=== PATIENT | female | born 1970 | race Caucasian/White ===

== ENCOUNTER 2021-02-09 18:18 | Emergency (ER) | payer MEDICAID ==
[~2021-02-09] VITALS: Ht 157.5 cm; Wt 133.8 kg
[2021-02-09 20:08] LABS: Basophils # (auto) 0 10 ^3/uL (0-0.2); Basophils % (auto) 0.5 % (0.0-2.0); Eosinophils # (auto) 0 10 ^3/uL (0-0.8); Eosinophils % (auto) 0.2 % (0.0-7.0); Hematocrit 27.8 % (36.0-46.0); Hemoglobin 8.2 g/dL (12.2-16.2); Lymphocytes # (auto) 1.1 10 ^3/uL (0.4-5.4); Lymphocytes % (auto) 16.7 % (10.0-50.0); Mean Corpuscular Hemoglobin 16.6 pg (28.0-32.0); Mean Corpuscular Hgb Conc. 29.5 g/dL (32.0-36.0); Mean Corpuscular Volume 56.4 fL (80.0-100.0); Monocytes # (auto) 0.3 10 ^3/uL (0-1.3); Monocytes % (auto) 4.3 % (0.0-12.0); Neutrophils # (auto) 5.1 10 ^3/uL (1.6-8.6); Neutrophils % (auto) 78.3 % (37.0-80.0); Nucleated Red Blood Cells % 0.2 %; Red Blood Cells 4.93 10^6/uL (4.0-5.20); White Blood Cell 6.5 10^3/uL (4.4-10.8)
[2021-02-09 20:09] LABS: Red Cell Distribution Width 21.8 % (11.8-14.3)
[2021-02-09 20:13] LABS: Albumin 3.1 g/dL (3.4-5.0); Potassium 3.8 mmol/L (3.5-5.1)
[2021-02-09 20:17] LABS: BUN/Creatinine Ratio 14.5; Bilirubin, Total 0.3 mg/dL (0.2-1.0); Total Protein 7.6 g/dL (6.4-8.2)
[2021-02-09 21:10] LABS: Magnesium 2.3 mg/dL (1.6-2.6)
[2021-02-09 23:33] LABS: INR 1.02 (0.9-1.15)
[2021-02-10 01:25] VITALS: BP 156/88
== END 2021-02-10 01:27 | disposition home or self-care (01) ==
LOC: ER 18:20
DX: U07.1 COVID-19 (principal); J12.82 Pneumonia due to coronavirus disease 2019
CPT/HCPCS: 36415; 71045; 80053; 83605; 83735; 83880; 84484; 85025; 85379; 85610; 87426

== ENCOUNTER 2024-10-04 11:40 | Inpatient (IN) | payer MEDICAID ==
[~2024-10-04] VITALS: Ht 152.4 cm; Wt 148.0 kg
--- NOTE | 2024-10-04 11:59 | ED.PDOC ---
HPI Comments 53 y/o F is BIBA from [facility] [place]. Chief complaint is chest pain nonradiating, with the associated shortness of breath, and productive green phlegm cough for 3x days . Patient states compliance with all her medications. Patient is a poor historian and a residence of a [facility]. She denies any palpitations, left-arm pain, nausea, vomiting, fever, chills, or other associated symptoms or modifying factors at this time. Vitals on scene: blood pressure of 141/102, pulse rate of 79, respiratory rate of 18, SpO2 of 96%RA, blood glucose of 116 Vitals upon ED arrival: blood pressure of 143/100, pulse rate of 78, respiratory rate of 18, Spo2 of 94%RA Past medical history: asthma, CHF, HTN, internal and external hemorrhoids, mental retardation Past surgical history: denies HPI: Poor Historian. REVIEW OF SYSTEMS: CONSTITUTIONAL: Denies acute: fever, diaphoresis, chills, generalized weakness. HEAD: Denies acute: headache, photophobia Eyes: Denies acute: Double vision, vision loss, eye pain, eye discharge. EARS: Denies acute: tinnitus, hearing loss, ear discharge, ear pain, THROAT: Denies acute: sore throat, swelling, difficulty swallowing , pain with swallowing, change in voice. NECK: Denies acute: neck pain, neck swelling, stiff neck. HEART: Denies acute : , palpitations, LUNGS: Denies acute: wheezing, hemoptysis ABDOMEN: Denies acute: abdominal pain, Nausea, Vomiting, diarrhea, melena , hematemesis, hematochezia SKIN: Denies acute: rash, redness, lesions, itchiness. EXTREMITIES: Denies acute: calf pain, numbness, tingling, weakness, denies pain in extremity. Denies acute: Low back pain. Neuro: Denies acute: focal neurological deficit, motor or sensory focal neurological deficit, tremors, seizure like activity, confusion, dizziness, change in mental status, loss of bowel or bladder function, cauda equina like symptoms. : Denies acute: dysuria, hematuria, flank pain, increase in urinary frequency. PSYCH: Denies acute: hallucination, suicidal ideation, homicidal ideation. FEMALE: Denies acute: abnormal vaginal bleeding, foul odor, unusual discharge. PHYSICAL EXAM: General: ---[id number]-----acute distress, awake and alert. Head: normocephalic, atraumatic. Neck: supple, trachea is midline, no swelling. Throat: Normal phonation. Eyes:, no erythema, no purulent discharge, no proptosis, no icterus. Heart: regular rate, regular rhythm, no significant murmur appreciated. Lungs: no apparent respiratory distress, Able to speak in full sentences. No wheezing, no rhonchi, no crackles. No stridors Clear to auscultation bilaterally. Abdomen: non tender to palpation, non distended, soft, no guarding, no rebound, + bowel sounds. Morbidly obese. Neuro: Awake, Alert, oriented to name, self, situation, follows commands GCS=15. Speech is normal. Skin: no petechia, no purpura, no cyanosis, non-pale, not jaundice. Lower extremities: --one/for bilateral - Pitting edema no deformity, no focal swelling, no calf TTP. Makes eye contact. moves all four extremities. Face: no apparent facial droop. ED COURSE: Time Seen by MD: 11:45 Primary Care Provider: NONE Reviewed Notes: Nurses Notes, Allergies Allergies: Coded Allergies: NO KNOWN ALLERGIES (Unverified , 01/03/12) Home Meds Reported Medications Ferrous Sulfate (Iron) 325 Mg Tab, 1 TAB PO DAILY 10/04/24 Potassium Chloride (Potassium Chloride ER) 20 Meq Tab, 1 TAB PO DAILY 10/04/24 Sennosides-Docusate Sodium (Senna Plus 50-8.6 mg) 1 Cap Cap, 1 CAP PO BID 10/04/24 Furosemide (Furosemide) 40 Mg Tab, 1 TAB PO DAILY 10/04/24 Lisinopril (Lisinopril) 2.5 Mg Tab, 1 TAB PO DAILY 10/04/24 Metoprolol Succinate (Metoprolol Succinate Er) 25 Mg Tab, 1 TAB PO DAILY 10/04/24 Information Source: Patient, Emergency Med Personnel Mode of Arrival: EMS Past Medical History PAST MEDICAL HISTORY: Asthma Surgical History: Denies all surgeries GAS STATION SERVICE ATTENDANT History: Denies all GAS STATION SERVICE ATTENDANT Hx Family History Family History: Reviewed,noncontributory to illness Social History Smoker: Non-Smoker Alcohol: Denies ETOH Use Drugs: Denies Drug Use Lives In: Home Was a procedure done? Was a procedure done?: No CP Differential Dx Differential Diagnosis: N/A Differential Diagnosis: Other (Ddx include but not limitied to gastritis, musculoskeletal pain, radiculopathy, atypical chest pain, dissection, aneurysm, ACS, unstable angina, hiatal hernia, GERD, anxiety, costochondritis, PE, pneumothroax, neoplasm, cardiac ischemia, drug abuse, anemia.) X-Ray, Labs, Meds, VS Vital Signs Date Time Temp Pulse Resp B/P (MAP) Pulse Ox O2 Delivery O2 Flow Rate FiO2 10/04/24 12:53 76 18 94 Room Air 10/04/24 12:53 98.3 76 18 123/72 (89) 94 98.3 10/04/24 12:41 80 10/04/24 12:30 15 96 Room Air* 0 21 10/04/24 11:45 78 10/04/24 11:40 98.9 73 18 143/100 (114) 94 98.9 Lab Test 10/04/24 13:08 10/04/24 12:56 10/04/24 12:30 10/04/24 12:08 Range/Units Troponin I High Sensitivity < 3 L < 3 L </=34 ng/L Sodium Level 139 136-145 mmol/L Potassium Level 4.4 3.5-5.1 mmol/L Chloride Level 102 98-107 mmol/L Carbon Dioxide Level 28 20-31 mmol/L Anion Gap 9 5-15 Blood Urea Nitrogen 13 9-23 mg/dL Creatinine 0.99 0.550-1.02 mg/dL Glomerular Filtration Rate Calc 68 >90 mL/min BUN/Creatinine Ratio 13.1 10.0-20.0 Serum Glucose 91 74-106 mg/dL Lactic Acid Level 1.6 0.4-2.0 mmol/L Calcium Level 10.1 8.7-10.4 mg/dL Magnesium Level 2.1 1.6-2.6 mg/dL Total Bilirubin 0.4 0.2-1.0 mg/dL Aspartate Amino Transferase (AST) 17 13-40 U/L Alanine Aminotransferase (ALT) 21 7-40 U/L Alkaline Phosphatase 71 46-116 U/L Total Protein 8.0 5.7-8.2 g/dL Albumin 4.6 3.2-4.8 g/dL Lipase Pending White Blood Count 10.6 4.4-10.8 10^3/uL Red Blood Count 5.83 H 4.0-5.20 10^6/uL Hemoglobin 16.3 H 12.2-16.2 g/dL Hematocrit 50.3 H 36.0-46.0 % Mean Corpuscular Volume 86.2 80.0-100.0 fL Mean Corpuscular Hemoglobin 27.9 L 28.0-32.0 pg Mean Corpuscular Hemoglobin Concent 32.4 32.0-36.0 g/dL Red Cell Distribution Width 15.4 H 11.8-14.3 % Platelet Count 273 140-450 10^3/uL Mean Platelet Volume 9.5 6.9-10.8 fL Neutrophils (%) (Auto) 76.2 37.0-80.0 % Lymphocytes (%) (Auto) 14.1 10.0-50.0 % Monocytes (%) (Auto) 5.0 0.0-12.0 % Eosinophils (%) (Auto) 3.8 0.0-7.0 % Basophils (%) (Auto) 0.9 0.0-2.0 % Neutrophils # (Auto) 8.1 1.6-8.6 10 ^3/uL Lymphocytes # (Auto) 1.5 0.4-5.4 10 ^3/uL Monocytes # (Auto) 0.5 0-1.3 10 ^3/uL Eosinophils # (Auto) 0.4 0-0.8 10 ^3/uL Basophils # (Auto) 0.1 0-0.2 10 ^3/uL Nucleated Red Blood Cells 0.4 % B-Type Natriuretic Peptide 7.80 0-100 pg/mL Current Medications Medications (Trade) Dose Ordered Sig/David Route Start Time Stop Time Status Last Admin Aspirin 325 mg ONCE ONCE PO 10/04/24 13:00 10/04/24 13:01 DC 10/04/24 12:[address] [address] Ph: [phone] DIAGNOSTIC IMAGING Diagnostic Imaging Report : [id number] Signed PATIENT: WILLIE SHER ACCT: [id number] UNIT: [id number] : 1970 LOC: ER ROOM / BED: / AGE / SEX: 53 / F ADM STATUS: REG ER SERVICE 1153 ORDERING PHYSICIAN: PAMELA BECKER DO PROCEDURE(s): CXRP - CHEST PORTABLE REASON: cp ORDER NUMBER(s): [id number], ACCESSION NUMBER(s): [id number] CHEST RADIOGRAPH Indication: cp Technique: Single frontal view of the chest was obtained COMPARISON: CHEST PORTABLE on DOS: 02/09/21 FINDINGS: Lines and Tubes: None Lungs: Increased interstitial prominence Pleura: No effusion. No pneumothorax. Cardiomediastinal contours: Cardiomegaly Bones: Unremarkable IMPRESSION: Pulmonary vascular congestion ATED BY: FREDRICK SANDOVAL MD DICTATED DATE/TIME: 10/04/24 1257 SIGNED BY: FREDRICK SANDOVAL MD SIGNED DATE/TIME: 10/04/24 1257 CC: Time of 1ST Reevaluation: 11:45 Reevaluation 1ST: Unchanged Patient Education/Counseling: Diagnosis, Treatment Family Education/Counseling: No Family Present Comments Patient presented with the above HPI.--chest pain----workup was initiated. patient was found with the above mentioned diagnosis. the following medications were ordered: please refer to order lists of meds and tests obtained by myself Dr. Becker. Patient ED course and VS have been stabilized. Patient has been reassessed in the ED and remained in a stable condition. Pertinent incidental findings were discussed with the patient and/or family. Patient/family voices understanding and is agreeable with plan. Patient has been observed in the ED adequate length of time to insure improvement/stability. Escalation of care considered: Consideration of escalation to observation or admission Patient was ADMITTED to the medicine team for further evaluation and treatment of their presentation. All the reports of any imaging studies that were ordered by myself were reviewed by myself. Departure 1 Departure Time of Disposition: 12:33 Impression: Primary Impression: Chest pain Disposition: ADMITTED INPATIENT Admit to: [facility] Condition: Guarded Discharged With: Self Critical Care Note Critical Care Time?: No Heart Score Heart Score: Heart Score Response (Comments) Value History Moderate Suspicious 1 EKG Normal 0 Age 45-64 1 Risk Factors >3 or Hx ASHD 2 Troponin Normal limit 0 Total 4 I personally scribed for PAMELA BECKER DO ([email or web address]) on 10/04/24 at 11:59. Electronically submitted by Ángel Chowdhury ([email or web address]). I personally scribed for PAMELA BECKER DO ([email or web address]) on 10/04/24 at 14:07. Electronically submitted by Ángel Chowdhury ([email or web address]). PAMELA BECKER DO Oct 04, 2024 11:59
[2024-10-04] MEDS ORDERED: ASPirin-EC 325mg tab PO ONE (12:00)
[2024-10-04 12:30] VITALS: RESP 15; O2SAT 96
[2024-10-04 12:38] LABS: Basophils # (auto) 0.1 10 ^3/uL (0-0.2); Basophils % (auto) 0.9 % (0.0-2.0); Eosinophils # (auto) 0.4 10 ^3/uL (0-0.8); Eosinophils % (auto) 3.8 % (0.0-7.0); Hematocrit 50.3 % (36.0-46.0); Hemoglobin 16.3 g/dL (12.2-16.2); Lymphocytes # (auto) 1.5 10 ^3/uL (0.4-5.4); Lymphocytes % (auto) 14.1 % (10.0-50.0); Mean Corpuscular Hemoglobin 27.9 pg (28.0-32.0); Mean Corpuscular Hgb Conc. 32.4 g/dL (32.0-36.0); Mean Corpuscular Volume 86.2 fL (80.0-100.0); Monocytes # (auto) 0.5 10 ^3/uL (0-1.3); Neutrophils # (auto) 8.1 10 ^3/uL (1.6-8.6); Neutrophils % (auto) 76.2 % (37.0-80.0); Nucleated Red Blood Cells % 0.4 %; Platelet Count (auto) 273 10^3/uL (140-450); Red Blood Cells 5.83 10^6/uL (4.0-5.20); Red Cell Distribution Width 15.4 % (11.8-14.3); White Blood Cell 10.6 10^3/uL (4.4-10.8)
[2024-10-04] MEDS: NITROGLYCERIN 0.4 MG SL TAB SL ONE (12:43)
[2024-10-04] MEDS: ASPirin 325 MG TAB PO ONE (12:49)
--- NOTE | 2024-10-04 13:00 | DVH ---
CHEST RADIOGRAPH Indication: cp Technique: Single frontal view of the chest was obtained COMPARISON: CHEST PORTABLE on DOS: 02/09/21 FINDINGS: Lines and Tubes: None Lungs: Increased interstitial prominence Pleura: No effusion. No pneumothorax. Cardiomediastinal contours: Cardiomegaly Bones: Unremarkable IMPRESSION: Pulmonary vascular congestion
[2024-10-04 13:54] LABS: Alanine Aminotransferase 21 U/L (7-40); Albumin 4.6 g/dL (3.2-4.8); Alkaline Phosphatase 71 U/L (46-116); Anion Gap 9 (5-15); Aspartate Aminotransferase 17 U/L (13-40); BUN/Creatinine Ratio 13.1 (10.0-20.0); Bilirubin, Total 0.4 mg/dL (0.2-1.0); Blood Urea Nitrogen 13 mg/dL (9-23); Calcium 10.1 mg/dL (8.7-10.4); Carbon Dioxide 28 mmol/L (20-31); Chloride 102 mmol/L (98-107); Glucose 91 mg/dL (74-106); Magnesium 2.1 mg/dL (1.6-2.6); Potassium 4.4 mmol/L (3.5-5.1); Sodium 139 mmol/L (136-145)
[2024-10-04 14:20] LABS: Lipase 37 U/L (12-53)
[2024-10-04] MEDS ORDERED: MORPHINE SULFATE 4 MG/ML SYR/VIAL IV PRN (15:15)
[2024-10-04] MEDS ORDERED: ONDANSETRON HCL 4 MG/2 ML VIAL IV PRN (15:15)
[2024-10-04] MEDS ORDERED: MORPHINE SULFATE INJ 2 MG/ml SYRG IV PRN (15:15)
[2024-10-04] MEDS ORDERED: NITROGLYCERIN 0.4 MG SL TAB SL PRN ×2 (15:15)
[2024-10-04] MEDS ORDERED: SENN1CAP4 PO (15:17)
[2024-10-04] MEDS ORDERED: POTA-180 PO (15:17)
[2024-10-04] MEDS ORDERED: FERR-7 PO (15:17)
[2024-10-04] MEDS ORDERED: LISI2.5T47 PO (15:17)
[2024-10-04] MEDS ORDERED: METO25TA93 PO (15:17)
[2024-10-04] MEDS ORDERED: FURO40TA4 PO (15:17)
--- NOTE | 2024-10-04 15:29 | DVHHP2 ---
History of Present Illness Reason for Visit: Chest pain History of Present Illness Edith Freire is a 53-year-old female with past medical history of hypertension, developmental delay, morbid obesity, asthma, hemorrhoids, and CHF who presents to ED with chest pain with shortness of breath and productive phlegm x 3 days. Patient reports that pain developed while sitting and when asked her how much pain she is having on a numerical scale or how it started patient is unable to provide information. Patient also reports that she uses 2 L nasal cannula at the board and care and does not recall the name of the board and care. Patient also endorses that she has been having phlegm but unable to describe the color and how much. Patient is a poor historian and unable to provide further information. She states "that she is scared." Cardiovascular: CHF, HTN Pulmonary: Asthma Past Medical History Developmental delay Hemorrhoids Past Surgical History: None Family History: Other (Unable to provide info of who has a history of hypertension and cervical cancer) Smoke: No ALCOHOL: none Drugs: None Lives: Other Domestic Violence: Neg Review of Systems Respiratory: Shortness of breath, Sputum Cardiovascular: Chest Pain Allergies: Coded Allergies: NO KNOWN ALLERGIES (Unverified , 01/03/12) Medications Current Medications Medications Dose Ordered Sig/David Route Start Time Stop Time Status Last Admin Dose Admin Ceftriaxone Sodium 50 ml @ 100 mls/hr DAILY@09 IV 10/04/24 15:15 UNV Azithromycin 250 ml @ 125 mls/hr DAILY IV 10/04/24 15:15 UNV Aspirin 81 mg DAILY PO 10/05/24 10:00 UNV Atorvastatin Calcium 40 mg HS PO 10/04/24 22:00 UNV Morphine Sulfate 2 mg Q30MP PRN IV 10/04/24 15:15 UNV Acetaminophen 650 mg Q6HP PRN PO 10/04/24 15:15 UNV Nitroglycerin 0.4 mg Q5MINP PRN SL 10/04/24 15:15 UNV Ondansetron HCl 4 mg Q4HP PRN IV 10/04/24 15:15 UNV Nitroglycerin 0.4 mg Q5MINP PRN SL 10/04/24 15:15 UNV Morphine Sulfate 2 mg Q30M PRN IV 10/04/24 15:15 UNV Exam Vital Signs Vital Signs Date Time Temp Pulse Resp B/P (MAP) Pulse Ox O2 Delivery O2 Flow Rate FiO2 10/04/24 14:41 77 10/04/24 12:53 18 94 Room Air 10/04/24 12:53 98.3 123/72 (89) 98.3 10/04/24 12:30 0 21 General Appearance: Alert, Oriented X3, Cooperative, No acute distress HEENT: Atraumatic, PERRLA, EOMI, Mucous membr. moist/pink Respiratory: Normal air movement Cardiovascular: Regular rate, Normal S1, Normal S2, No murmurs Abdominal: Soft Extremities: No clubbing, No cyanosis Neuro: Normal speech, Normal tone, Sensation intact Psych/Mental Status: Mental status NL, Other (History of developmental delay anxious at the time) Labs/Xrays Labs Test 10/04/24 15:06 10/04/24 12:56 10/04/24 12:30 Range/Units Sodium Level 139 136-145 mmol/L Potassium Level 4.4 3.5-5.1 mmol/L Chloride Level 102 98-107 mmol/L Carbon Dioxide Level 28 20-31 mmol/L Anion Gap 9 5-15 Blood Urea Nitrogen 13 9-23 mg/dL Creatinine 0.99 0.550-1.02 mg/dL Glomerular Filtration Rate Calc 68 >90 mL/min BUN/Creatinine Ratio 13.1 10.0-20.0 Serum Glucose 91 74-106 mg/dL Lactic Acid Level 1.6 0.4-2.0 mmol/L Calcium Level 10.1 8.7-10.4 mg/dL Magnesium Level 2.1 1.6-2.6 mg/dL Total Bilirubin 0.4 0.2-1.0 mg/dL Aspartate Amino Transferase (AST) 17 13-40 U/L Alanine Aminotransferase (ALT) 21 7-40 U/L Alkaline Phosphatase 71 46-116 U/L Total Protein 8.0 5.7-8.2 g/dL Albumin 4.6 3.2-4.8 g/dL Lipase 37 12-53 U/L White Blood Count 10.6 4.4-10.8 10^3/uL Red Blood Count 5.83 H 4.0-5.20 10^6/uL Hemoglobin 16.3 H 12.2-16.2 g/dL Hematocrit 50.3 H 36.0-46.0 % Mean Corpuscular Volume 86.2 80.0-100.0 fL Mean Corpuscular Hemoglobin 27.9 L 28.0-32.0 pg Mean Corpuscular Hemoglobin Concent 32.4 32.0-36.0 g/dL Red Cell Distribution Width 15.4 H 11.8-14.3 % Platelet Count 273 140-450 10^3/uL Mean Platelet Volume 9.5 6.9-10.8 fL Neutrophils (%) (Auto) 76.2 37.0-80.0 % Lymphocytes (%) (Auto) 14.1 10.0-50.0 % Monocytes (%) (Auto) 5.0 0.0-12.0 % Eosinophils (%) (Auto) 3.8 0.0-7.0 % Basophils (%) (Auto) 0.9 0.0-2.0 % Neutrophils # (Auto) 8.1 1.6-8.6 10 ^3/uL Lymphocytes # (Auto) 1.5 0.4-5.4 10 ^3/uL Monocytes # (Auto) 0.5 0-1.3 10 ^3/uL Eosinophils # (Auto) 0.4 0-0.8 10 ^3/uL Basophils # (Auto) 0.1 0-0.2 10 ^3/uL Nucleated Red Blood Cells 0.4 % B-Type Natriuretic Peptide 7.80 0-100 pg/mL CHEST RADIOGRAPH Indication: cp Technique: Single frontal view of the chest was obtained COMPARISON: CHEST PORTABLE on DOS: 02/09/21 FINDINGS: Lines and Tubes: None Lungs: Increased interstitial prominence Pleura: No effusion. No pneumothorax. Cardiomediastinal contours: Cardiomegaly Bones: Unremarkable IMPRESSION: Pulmonary vascular congestion Assessment/Plan Assessment/Plan Assessment Chest pain Acute on chronic CHF exacerbation Green productive phlegm probable pneumonia versus pneumonitis Morbid obesity Acute hypoxic respiratory failure History of hypertension History of developmental delay History of asthma History of hemorrhoids Plan Admit to tele Antiemetics Pain management UA Diuretics Aspirin Statins EKG Troponins Chest x-ray Lactic level Lipase Mag level BNP Supportive oxygen IV antibiotics-ceftriaxone + azithromycin Echo ordered UDS TSH Lipid panel A1c Mag level Diet Strict I&Os Daily weights Home medications reconciled DVT prophylaxis-Lovenox PUD prophylaxis not indicated no history of GERD or GI bleed Discussed plan of care with patient and nurse Counseled patient on lifestyle modifications, diet, and exercise Patient is a resident of a board and care Plan discussed with: Patient My Orders Orders - MORGAN MULLINS [employer] [facility] DIRECTOR Procedure Category Date Status Time Ceftriaxone 1gm/50ml PHA 10/04/24 Logged D5w (Rocephin) 15:15 Azithromycin 500mg/ PHA 10/04/24 Logged 250ml (Zithromax 50 15:15 Echo 2d Mode Cardiac US 10/04/24 Logged DOP 15:07 Drug Screen LAB 10/04/24 Logged 15:07 Thyroid Stimulating LAB 10/04/24 Logged Hormone 15:07 Hemoglobin A1c LAB 10/04/24 Logged 15:07 Lipid Panel LAB 10/04/24 Logged 15:07 Admit ADMIT 10/04/24 Transmitted 15:07 Code Status CODE 10/04/24 Transmitted 15:07 Vital Signs JAYLEN 10/04/24 In Process 15:07 Roofer Metal JAYLEN 10/04/24 In Process 15:07 Cardiac DIET 10/04/24 Transmitted Diet-2gna,Lofat,Lochol Dinner Aspirin Tablet PHA 10/05/24 Logged 10:00 Atorvastatin (Lipitor) PHA 10/04/24 Logged 22:00 Morphine Sulfate PHA 10/04/24 Logged Injection 15:15 Acetaminophen Tablet PHA 10/04/24 Logged (Tylenol Tablet) 15:15 Complete Blood Count LAB 10/05/24 Verified 04:00 Basic Metabolic Panel LAB 10/05/24 Verified 04:00 Magnesium LAB 10/05/24 Verified 04:00 Nitroglycerin PHA 10/04/24 Logged Sublingual (Ntrostat 15:15 Ondansetron Hcl PHA 10/04/24 Logged (Zofran) 15:15 Electrocardigram EKG 10/05/24 Logged 04:00 Troponin-I Hs LAB 10/04/24 Logged 15:07 Cardiac JAYLEN 10/04/24 In Process Rehabilitation - Outpa Nitroglycerin PHA 10/04/24 Logged Sublingual (Ntrostat 15:15 Morphine Sulfate PHA 10/04/24 Logged Injection 15:15 Stat Ekg For Chest JAYLEN 10/04/24 In Process Pain 15:07 Notify Of Changes JAYLEN 10/04/24 In Process From Base 15:07 Senior Executive Compensation Analyst For JAYLEN 10/04/24 In Process 24 Hours 15:07 Emergency Dysrhythmia JAYLEN 10/04/24 In Process Protocol 15:07 Rhythm Strips Once [facility] 10/04/24 In Process Every Shift 15:07 Oxygen By Nasal RT 10/04/24 Transmitted Cannula 15:07 Furosemide Tablet PHA 10/05/24 Transmitted (Lasix Tablet) 10:00 (Nf) Ferrous Sulfate PHA 10/05/24 Transmitted (Iron) 10:00 (Nf) Lisinopril PHA 10/05/24 Transmitted 10:00 (Nf) Metoprolol PHA 10/05/24 Transmitted Succinate (Metoprolol 10:00 (Nf) Potassium PHA 10/05/24 Transmitted Chloride (Potassium 10:00 (NF) PHA 10/04/24 Transmitted Sennosides-Docusate 22:00 Enoxaparin Sodium PHA 10/05/24 Verified (Lovenox) 10:00 Date of Service: Oct 04, 2024 Billing Provider: MORGAN MULLINS Common Visit Codes: [id number] INP/OBS CARE (HIGH) MORGAN MULLINS Oct 04, 2024 15:29
[2024-10-04 15:52] LABS: Triglycerides 84 mg/dL (< 150)
[2024-10-04 15:53] LABS: LDL Cholesterol 95 mg/dL (< 100)
[2024-10-04 15:54] LABS: Cholesterol 157 mg/dL (< 200); HDL Cholesterol 50 mg/dL (40-59)
[2024-10-04 17:05] LABS: Urine Bacteria None Seen /hpf (None Seen)
[2024-10-04 17:25] LABS: Urine Blood Negative /uL (Negative); Urine Clarity Clear (Clear); Urine Color Light-Yellow (Yellow); Urine Protein, UAD Negative (Negative); Urine Specific Gravity 1.011 (1.001-1.035); Urine Squamous Epithelial Cell None Seen /hpf (<5); Urine Urobilinogen Normal (Negative); Urine WBC < 1 /HPF (0-5)
[2024-10-04 17:28] LABS: Amphetamine Screen, Urine Neg (NEGATIVE); Barbiturate Scree,Urine Neg (NEGATIVE); Benzodiazephine Screen, Urine Neg (NEGATIVE); Cannabinoid Screen, Urine Neg (NEGATIVE); Cocaine Screen, Urine Neg (NEGATIVE); Opiate Scree,Urine Neg (NEGATIVE); Phencyclidine Screen, Urine Neg (NEGATIVE)
[2024-10-04] MEDS: cefTRIAXone 1GM/50ML D5W 50 ML IV SCH (17:40)
[2024-10-04] MEDS: FUROSEMIDE 40 MG/4 ML VIAL IV ONE (17:41)
[2024-10-04] MEDS: FUROSEMIDE 40 MG/4 ML VIAL IV SCH (18:00)
[2024-10-04] MEDS: AZITHROMYCIN 500MG/ 250ML 250 ML IV SCH (18:08)
--- NOTE | 2024-10-04 18:16 | ECG ---
[facility] Test Date: 2024-10-04 Test Time: 11:45:22 Pat Name: WILLIE SHER Department: ED Room: 0223T Gender: F Strategic Account Director: dung : 1970 Requested By: PAMELA BECKER Order Number: [id number] Reading MD: Wallace Medrano Measurements Intervals [place] Rate: 78 P: 40 WI: 160 QRS: 45 QRSD: 99 T: 30 QT: 391 QTc: 446 Interpretive Statements Sinus rhythm Low voltage, precordial leads Electronically Signed On 10-06-2024 20:28:34 PDT by Wallace Medrano Please click the below link to view image of tracing.
[2024-10-04 18:26] VITALS: BP 107/63; PULSE 79; RESP 22; TEMP 97.7; O2SAT 93
[2024-10-04 18:50] VITALS: BP 107/69; PULSE 76; RESP 20; TEMP 97.7; O2SAT 93
[2024-10-04 20:00] VITALS: PULSE 72
[2024-10-04] MEDS: ACETAMINOPHEN 325 MG TAB PO PRN (20:32)
[2024-10-04 21:00] VITALS: BP 110/65; PULSE 80; RESP 20; TEMP 97.9; O2SAT 94
[2024-10-04] MEDS: ATORVASTATIN 20 MG TAB PO SCH (22:33)
[2024-10-04] MEDS: SENNOSIDES DOCUSATE SODIUM PO SCH (22:33)
[2024-10-05] VITALS (7 sets, daily range): BP systolic 103–123; BP diastolic 51–69; PULSE 72–91; RESP 15–20; TEMP 97.5–98.7; O2SAT 90–99
[2024-10-05 07:12] LABS: Basophils # (auto) 0.1 10 ^3/uL (0-0.2); Eosinophils # (auto) 0.4 10 ^3/uL (0-0.8); Eosinophils % (auto) 4.4 % (0.0-7.0); Hemoglobin 14.3 g/dL (12.2-16.2); Lymphocytes # (auto) 1.3 10 ^3/uL (0.4-5.4); Lymphocytes % (auto) 14.3 % (10.0-50.0); Mean Corpuscular Hemoglobin 28.2 pg (28.0-32.0); Mean Corpuscular Hgb Conc. 32.4 g/dL (32.0-36.0); Mean Corpuscular Volume 86.9 fL (80.0-100.0); Monocytes # (auto) 0.4 10 ^3/uL (0-1.3); Monocytes % (auto) 4.5 % (0.0-12.0); Neutrophils % (auto) 75.8 % (37.0-80.0); Nucleated Red Blood Cells % 0.2 %; Platelet Count (auto) 258 10^3/uL (140-450); Red Blood Cells 5.06 10^6/uL (4.0-5.20); Red Cell Distribution Width 15.3 % (11.8-14.3); White Blood Cell 9.3 10^3/uL (4.4-10.8)
[2024-10-05 07:31] LABS: Chloride 102 mmol/L (98-107); Potassium 4.5 mmol/L (3.5-5.1); Sodium 139 mmol/L (136-145)
[2024-10-05 07:32] LABS: Calcium 9.8 mg/dL (8.7-10.4)
[2024-10-05 07:37] LABS: BUN/Creatinine Ratio 11.7 (10.0-20.0); Blood Urea Nitrogen 12 mg/dL (9-23); Magnesium 2.3 mg/dL (1.6-2.6)
[2024-10-05 07:39] LABS: Glucose 108 mg/dL (74-106)
[2024-10-05 07:49] LABS: Anion Gap 10 (5-15); Carbon Dioxide 27 mmol/L (20-31)
[2024-10-05] MEDS: ASPirin 81 mg TAB PO SCH (09:47)
[2024-10-05] MEDS: FERROUS SULFATE 325mg EC TAB PO SCH (09:47)
[2024-10-05] MEDS: POTASSIUM CHL 20 Meq TABLET PO SCH (09:47)
[2024-10-05] MEDS: ENOXAPARIN SOD 40 MG/0.4 ML SYRINGE SC SCH (09:47)
[2024-10-05] MEDS: METOPROLOL SUCCINATE XL 50 MG TAB PO SCH (09:48)
[2024-10-05] MEDS: LISINOPRIL 5 MG TAB PO SCH (09:48)
[2024-10-05] MEDS ORDERED: FUROSEMIDE 40 MG TAB PO SCH (10:00)
[2024-10-05] MEDS ORDERED: PATIENTS OWN MEDICATION (Potassium Chloride (Potassium Chloride ER) 1 TAB) PO SCH (10:00)
[2024-10-05] MEDS ORDERED: FERROUS SULFATE PO SCH (10:00)
--- NOTE | 2024-10-05 12:39 | DVHPN2 ---
Subjective The patient is seen and examined at bedside. No complaint today. Still have shortness for breath. Reviewed: Care Plan, H&P, Labs, Medications, Previous Orders, Radiology Changes from previous H/P or p: No Changes Cardiovascular: Chest Pain Respiratory: Shortness of breath, Sputum Objective Vitals Vital Signs Date Time Temp Pulse Resp B/P (MAP) Pulse Ox O2 Delivery O2 Flow Rate FiO2 10/05/24 09:48 87 103/51 10/05/24 09:00 98.2 20 93 98.2 10/05/24 08:00 Nasal Cannula* 2 28 Intake/Output Intake and Output 10/05/24 07:00 Intake Total 700 ml Output Total 2300 ml Balance -1600 ml Intake Oral 400 ml IV Total 300 ml Output Urine Total 2300 ml General Appearance: Alert, Cooperative, No acute distress HEENT: Atraumatic, PERRLA, EOMI, Mucous membr. moist/pink Lungs: Clear to auscultation, Normal air movement Cardiovascular: Regular rate, Normal S1, Normal S2, No murmurs, Gallops, Rubs Abdomen: Normal bowel sounds, Soft, No tenderness Neuro: Cranial nerves 3-12 NL Psych/Mental Status: Mental status NL Medications Current Medications Medications Dose Ordered Sig/David Route Start Time Stop Time Status Last Admin Dose Admin Ceftriaxone Sodium 50 ml @ 100 mls/hr DAILY@09 IV 10/04/24 15:15 10/05/24 09:45 100 MLS/HR Azithromycin 250 ml @ 125 mls/hr DAILY IV 10/04/24 15:15 10/05/24 11:12 125 MLS/HR Aspirin 81 mg DAILY PO 10/05/24 10:00 10/05/24 09:47 81 MG Atorvastatin Calcium 40 mg HS PO 10/04/24 22:00 10/04/24 22:33 40 MG Acetaminophen 650 mg Q6HP PRN PO 10/04/24 15:15 10/05/24 03:27 650 MG Ondansetron HCl 4 mg Q4HP PRN IV 10/04/24 15:15 Nitroglycerin 0.4 mg Q5MINP PRN SL 10/04/24 15:15 Morphine Sulfate 2 mg Q30M PRN IV 10/04/24 15:15 Lisinopril 2.5 mg DAILY PO 10/05/24 10:00 10/05/24 09:48 2.5 MG Metoprolol Succinate 25 mg DAILY PO 10/05/24 10:00 10/05/24 09:48 25 MG Patient Own Medication 1 cap BID PO 10/04/24 22:00 Enoxaparin Sodium 40 mg DAILY SC 10/05/24 10:00 10/05/24 09:47 40 MG Furosemide 40 mg BIDD IV 10/04/24 18:00 10/05/24 05:20 40 MG Ferrous Sulfate 325 mg DAILY PO 10/05/24 10:00 10/05/24 09:47 325 MG Potassium Chloride 20 meq DAILY PO 10/05/24 10:00 10/05/24 09:47 20 MEQ Laboratory Results Laboratory Tests 10/05/24 06:27 Chemistry Test 10/04/24 12:56 10/05/24 06:27 Albumin 4.6 g/dL (3.2-4.8) Calcium Level 10.1 mg/dL (8.7-10.4) 9.8 mg/dL (8.7-10.4) Magnesium Level 2.1 mg/dL (1.6-2.6) 2.3 mg/dL (1.6-2.6) Total Protein 8.0 g/dL (5.7-8.2) Lipid panel Test 10/04/24 12:56 10/04/24 15:06 Lipase 37 U/L (12-53) Cholesterol Level 157 mg/dL (< 200) HDL Cholesterol 50 mg/dL (40-59) Triglycerides Level 84 mg/dL (< 150) LFT Test 10/04/24 12:56 Alanine Aminotransferase (ALT) 21 U/L (7-40) Alkaline Phosphatase 71 U/L (46-116) Aspartate Amino Transferase (AST) 17 U/L (13-40) Total Bilirubin 0.4 mg/dL (0.2-1.0) HgA1c, TSH Test 10/04/24 15:06 Thyroid Stimulating Hormone (TSH) 4.04 uIU/mL (0.55-4.78) Urinalysis Test 10/04/24 00:00 Urine Color Light-yellow (Yellow) Urine Clarity Clear (Clear) Urine pH 6.0 (5.0-9.0) Urine Specific [place] 1.011 (1.001-1.035) Urine Protein Negative (Negative) Urine Ketones Negative (Negative) Urine Blood Negative /uL (Negative) Urine Nitrite Negative (Negative) Urine Bilirubin Negative (Negative) Urine Urobilinogen Normal mg/dL (Negative) Urine Leukocyte Esterase Negative /uL (Negative) Urine RBC 1 /hpf (0 - 4) Urine Microscopic WBC < 1 /HPF (0-5) Urine Squamous Epithelial Cells None seen /hpf (<5) Urine Bacteria None seen /hpf (None Seen) Urine Glucose Normal mg/dL (Normal) Labs and/or images reviewed: Labs reviewed by me Assessment/Plan Assessment/Plan Chest pain Acute on chronic CHF exacerbation Green productive phlegm probable pneumonia versus pneumonitis Morbid obesity Acute hypoxic respiratory failure History of hypertension History of developmental delay History of asthma History of hemorrhoids Plan Continuing current management. Continuing with Lasix Continuing with nebulizer. Continuing with pain medication Continuing with IV antibiotic Rocephin and Zithromax. Waiting for strip roller to see the patient. This medical document was created using an electronic medical record system with [employer] direct computerized dictation system. Although this document has been carefully reviewed, there may still be some phonetic and typographical errors. These areas are purely typographical due to imperfections of the software programs, and do not reflect any compromise in the patient's medical care. Plan discussed with: Patient Date of Service: Oct 05, 2024 Billing Provider: SHAHEEN MARTINEZ MD Common Visit Codes: [id number] INP/OBS CARE(HIGH) SHAHEEN MARTINEZ MD Oct 05, 2024 12:39
--- NOTE | 2024-10-05 18:54 | ECG ---
[facility] Test Date: 2024-10-04 Test Time: 12:41:42 Pat Name: WILLIE SHER Department: ER Room: 0223T A Gender: F Welt Sewer: RITESH : 1970 Requested By: PAMELA BECKER Order Number: [id number] Reading MD: Wallace Medrano Measurements Intervals [place] Rate: 80 P: 36 LA: 160 QRS: 44 QRSD: 97 T: 29 QT: 396 QTc: 457 Interpretive Statements Sinus rhythm Low voltage, precordial leads Electronically Signed On 10-06-2024 20:29:13 PDT by Wallace Medrano Please click the below link to view image of tracing.
--- NOTE | 2024-10-05 20:53 | DVHSR ---
APPROVED REPORT EXAM: LIMITED Two-dimensional and M-mode echocardiogram with Doppler and color Doppler. Blood Pressure: 118/62 mmHg INDICATION Chest Pain RISK FACTORS Obesity: Height: 5', Weight: 277 DIMENSIONS LVDd5.1 (3.8-5.7cm)LA (2D)4.5 (1.9-4.0cm)Aortic Root4.3 (2.0-3.7cm) LVDs3.4 (2.5-4.0cm)LA (MM) (1.9-4.0cm)Aortic Cusp Exc1.6 (1.5-2.0cm) EF (%) 60.0 (55-70%)Rt. Atrium4.3 (1.9-4.0cm)Asc. Aorta cm IVSd1.1 (0.7-1.1cm)RV (D) (1.8-2.4cm) PWd1.0 (0.7-1.1cm) Mitral Valve MitralMitral Stenosis E wave0.90m/sMV Mean GR.mmHg A wave0.70m/sMV Peak GR.mmHg E/A ratio1.32D MVAcm2 Aortic Valve Aortic ValveAortic Stenosis V11.10m/Gilberto Mean GR.5mmHg V21.50m/Gilberto Peak GR.10mmHg LVOT Diameter1.9 (1.8-2.4cm)Doppler AVA2.08cm2 Pulmonic Valve V20.90m/s Tricuspid Valve TR Velocity2.70m/s [id number] Other Information Quality : Technically LimitedRhythm : Technically limited study due to body habitus. 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
[2024-10-05] MEDS: LORazepam 2MG/ML-1ML VIAL IV PRN (21:37)
[2024-10-06] VITALS (7 sets, daily range): BP systolic 97–108; BP diastolic 53–64; PULSE 72–91; RESP 15–18; TEMP 97.5–98.7; O2SAT 90–91
[2024-10-06 08:08] LABS: Anion Gap 8 (5-15); Calcium 10.4 mg/dL (8.7-10.4); Carbon Dioxide 29 mmol/L (20-31); Chloride 103 mmol/L (98-107); Potassium 4.4 mmol/L (3.5-5.1); Sodium 140 mmol/L (136-145)
[2024-10-06 08:14] LABS: BUN/Creatinine Ratio 13.2 (10.0-20.0); Blood Urea Nitrogen 14 mg/dL (9-23); Glucose 104 mg/dL (74-106)
--- NOTE | 2024-10-06 09:12 | ECG ---
[facility] Test Date: 2024-10-04 Test Time: 14:41:53 Pat Name: WILLIE SHER Department: ER Room: 0223T A Gender: F Measurement Department Chief Clerk: RITESH : 1970 Requested By: PAMELA BECKER Order Number: [id number] Reading MD: Wallace Medrano Measurements Intervals [place] Rate: 77 P: 41 DC: 160 QRS: 51 QRSD: 104 T: 30 QT: 406 QTc: 460 Interpretive Statements Sinus rhythm Low voltage, precordial leads Electronically Signed On 10-06-2024 20:29:46 PDT by Wallace Medrano Please click the below link to view image of tracing.
--- NOTE | 2024-10-06 12:04 | DVHPN2 ---
Subjective The patient is seen and examined at bedside. Complain shortness for breath. Reviewed: Care Plan, H&P, Labs, Medications, Previous Orders, Radiology Changes from previous H/P or p: No Changes Cardiovascular: Chest Pain Respiratory: Shortness of breath, Sputum Objective Vitals Vital Signs Date Time Temp Pulse Resp B/P (MAP) Pulse Ox O2 Delivery O2 Flow Rate FiO2 10/06/24 09:38 90 129/99 10/06/24 09:00 98.1 18 90 98.1 10/06/24 08:00 Nasal Cannula* 2 28 Intake/Output Intake and Output 10/06/24 07:00 Intake Total 1708 ml Output Total 3650 ml Balance -1942 ml Intake Oral 1408 ml IV Total 300 ml Output Urine Total 3650 ml # Voids 1 General Appearance: Alert, Cooperative, No acute distress HEENT: Atraumatic, PERRLA, EOMI, Mucous membr. moist/pink Neck: Supple Lungs: Clear to auscultation, Normal air movement Cardiovascular: Regular rate, Normal S1, Normal S2, No murmurs, Gallops, Rubs Abdomen: Normal bowel sounds, Soft, No tenderness, No hepatospenomegaly Neuro: Cranial nerves 3-12 NL Psych/Mental Status: Mental status NL Medications Current Medications Medications Dose Ordered Sig/David Route Start Time Stop Time Status Last Admin Dose Admin Ceftriaxone Sodium 50 ml @ 100 mls/hr DAILY@09 IV 10/04/24 15:15 10/06/24 09:35 100 MLS/HR Azithromycin 250 ml @ 125 mls/hr DAILY IV 10/04/24 15:15 10/06/24 11:54 125 MLS/HR Aspirin 81 mg DAILY PO 10/05/24 10:00 10/06/24 09:40 81 MG Atorvastatin Calcium 40 mg HS PO 10/04/24 22:00 10/05/24 21:59 40 MG Acetaminophen 650 mg Q6HP PRN PO 10/04/24 15:15 10/06/24 06:12 650 MG Ondansetron HCl 4 mg Q4HP PRN IV 10/04/24 15:15 Nitroglycerin 0.4 mg Q5MINP PRN SL 10/04/24 15:15 Morphine Sulfate 2 mg Q30M PRN IV 10/04/24 15:15 Lisinopril 2.5 mg DAILY PO 10/05/24 10:00 10/06/24 09:36 2.5 MG Metoprolol Succinate 25 mg DAILY PO 10/05/24 10:00 10/06/24 09:38 25 MG Patient Own Medication 1 cap BID PO 10/04/24 22:00 Enoxaparin Sodium 40 mg DAILY SC 10/05/24 10:00 10/06/24 09:35 40 MG Furosemide 40 mg BIDD IV 10/04/24 18:00 10/05/24 18:13 40 MG Ferrous Sulfate 325 mg DAILY PO 10/05/24 10:00 10/06/24 09:39 325 MG Potassium Chloride 20 meq DAILY PO 10/05/24 10:00 10/06/24 09:39 20 MEQ Lorazepam 1 mg DAILY PRN IV 10/05/24 21:15 10/05/24 21:37 1 MG Laboratory Results Laboratory Tests 10/05/24 06:27 10/06/24 07:02 Chemistry Test 10/06/24 07:02 Calcium Level 10.4 mg/dL (8.7-10.4) Urinalysis Test 10/04/24 00:00 Urine Color Light-yellow (Yellow) Urine Clarity Clear (Clear) Urine pH 6.0 (5.0-9.0) Urine Specific [place] 1.011 (1.001-1.035) Urine Protein Negative (Negative) Urine Ketones Negative (Negative) Urine Blood Negative /uL (Negative) Urine Nitrite Negative (Negative) Urine Bilirubin Negative (Negative) Urine Urobilinogen Normal mg/dL (Negative) Urine Leukocyte Esterase Negative /uL (Negative) Urine RBC 1 /hpf (0 - 4) Urine Microscopic WBC < 1 /HPF (0-5) Urine Squamous Epithelial Cells None seen /hpf (<5) Urine Bacteria None seen /hpf (None Seen) Urine Glucose Normal mg/dL (Normal) Labs and/or images reviewed: Labs reviewed by me Assessment/Plan Assessment/Plan Chest pain Acute on chronic CHF exacerbation Green productive phlegm probable pneumonia versus pneumonitis Morbid obesity Acute hypoxic respiratory failure History of hypertension History of developmental delay History of asthma History of hemorrhoids Plan Continuing current management. Continuing with Lasix Continuing with nebulizer. Continuing with pain medication Continuing with IV antibiotic Rocephin and Zithromax. Waiting for line installer trolley to see the patient. This medical document was created using an electronic medical record system with M*M flurency direct computerized dictation system. Although this document has been carefully reviewed, there may still be some phonetic and typographical errors. These areas are purely typographical due to imperfections of the software programs, and do not reflect any compromise in the patient's medical care. Plan discussed with: Patient My Orders Orders - SHAHEEN MARTINEZ MD Procedure Category Date Status Time R Ankle 2 View Xray XY 10/06/24 Logged 11:22 Date of Service: Oct 05, 2024 Billing Provider: SHAHEEN MARTINEZ MD Common Visit Codes: [id number] INP/OBS CARE(HIGH) SHAHEEN MARTINZE MD Oct 06, 2024 12:04
--- NOTE | 2024-10-06 12:13 | CODING ---
Date of Service: Oct 06, 2024 Billing Provider: SHAHEEN MARTINEZ MD Common Visit Codes: [id number] INP/OBS CARE(HIGH) SHAHEEN MARTINEZ MD Oct 06, 2024 12:13
[2024-10-06] MEDS: HYDROcodone-ACET 5/325MG TAB PO PRN (13:27)
[2024-10-06] MEDS: LORazepam 2MG/ML-1ML VIAL IV PRN (13:27)
--- NOTE | 2024-10-06 14:51 | DVH ---
CLINICAL INDICATION: RULE OUT FRACTURE TECHNIQUE: 2 views of the right ankle Comparison: None FINDINGS/IMPRESSION: There is no evidence of acute fracture or dislocation. Scattered mild degenerative changes. Soft tissues are unremarkable.
[2024-10-07] VITALS (11 sets, daily range): BP systolic 95–143; BP diastolic 54–80; PULSE 65–94; RESP 16–18; TEMP 97.5–98.3; O2SAT 90–99
--- NOTE | 2024-10-07 11:20 | DVHPN2 ---
Subjective The patient is seen and examined at bedside. No complaint today. Still have shortness for breath. Reviewed: Care Plan, H&P, Labs, Medications, Previous Orders, Radiology Changes from previous H/P or p: No Changes Cardiovascular: Chest Pain Respiratory: Shortness of breath, Sputum Objective Vitals Vital Signs Date Time Temp Pulse Resp B/P (MAP) Pulse Ox O2 Delivery O2 Flow Rate FiO2 10/07/24 10:00 96/54 10/07/24 05:00 97.9 80 18 90 97.9 10/06/24 20:00 Nasal Cannula* 2 28 Intake/Output Intake and Output 10/07/24 07:00 Intake Total 1735 ml Output Total 1000 ml Balance 735 ml Intake Oral 1435 ml IV Total 300 ml Output Urine Total 1000 ml # Bowel Movements 3 General Appearance: Alert, Cooperative, No acute distress HEENT: Atraumatic, PERRLA, EOMI, Mucous membr. moist/pink Neck: Supple Lungs: Clear to auscultation, Normal air movement Cardiovascular: Regular rate, Normal S1, Normal S2, No murmurs, Gallops, Rubs Abdomen: Normal bowel sounds, Soft, No tenderness Neuro: Cranial nerves 3-12 NL Psych/Mental Status: Mental status NL Medications Current Medications Medications Dose Ordered Sig/David Route Start Time Stop Time Status Last Admin Dose Admin Ceftriaxone Sodium 50 ml @ 100 mls/hr DAILY@09 IV 10/04/24 15:15 10/07/24 09:57 100 MLS/HR Azithromycin 250 ml @ 125 mls/hr DAILY IV 10/04/24 15:15 10/06/24 11:54 125 MLS/HR Aspirin 81 mg DAILY PO 10/05/24 10:00 10/07/24 10:06 81 MG Atorvastatin Calcium 40 mg HS PO 10/04/24 22:00 10/06/24 22:05 40 MG Acetaminophen 650 mg Q6HP PRN PO 10/04/24 15:15 10/06/24 06:12 650 MG Ondansetron HCl 4 mg Q4HP PRN IV 10/04/24 15:15 Nitroglycerin 0.4 mg Q5MINP PRN SL 10/04/24 15:15 Morphine Sulfate 2 mg Q30M PRN IV 10/04/24 15:15 Lisinopril 2.5 mg DAILY PO 10/05/24 10:00 10/06/24 09:36 2.5 MG Metoprolol Succinate 25 mg DAILY PO 10/05/24 10:00 10/06/24 09:38 25 MG Patient Own Medication 1 cap BID PO 10/04/24 22:00 Enoxaparin Sodium 40 mg DAILY SC 10/05/24 10:00 10/07/24 10:04 40 MG Furosemide 40 mg BIDD IV 10/04/24 18:00 10/07/24 06:23 40 MG Ferrous Sulfate 325 mg DAILY PO 10/05/24 10:00 10/07/24 10:05 325 MG Potassium Chloride 20 meq DAILY PO 10/05/24 10:00 10/07/24 10:04 20 MEQ Acetaminophen/ Hydrocodone Bitart 1 tab Q4HPRN PRN PO 10/06/24 13:15 10/07/24 10:36 1 TAB Lorazepam 1 mg Q4HPRN PRN IV 10/06/24 13:15 10/06/24 13:27 1 MG Laboratory Results Laboratory Tests 10/05/24 06:27 10/06/24 07:02 Urinalysis Test 10/04/24 00:00 Urine Color Light-yellow (Yellow) Urine Clarity Clear (Clear) Urine pH 6.0 (5.0-9.0) Urine Specific [place] 1.011 (1.001-1.035) Urine Protein Negative (Negative) Urine Ketones Negative (Negative) Urine Blood Negative /uL (Negative) Urine Nitrite Negative (Negative) Urine Bilirubin Negative (Negative) Urine Urobilinogen Normal mg/dL (Negative) Urine Leukocyte Esterase Negative /uL (Negative) Urine RBC 1 /hpf (0 - 4) Urine Microscopic WBC < 1 /HPF (0-5) Urine Squamous Epithelial Cells None seen /hpf (<5) Urine Bacteria None seen /hpf (None Seen) Urine Glucose Normal mg/dL (Normal) Labs and/or images reviewed: Labs reviewed by me Assessment/Plan Assessment/Plan Chest pain Acute on chronic CHF exacerbation Green productive phlegm probable pneumonia versus pneumonitis Morbid obesity Acute hypoxic respiratory failure History of hypertension History of developmental delay History of asthma History of hemorrhoids Plan Continuing current management. Continuing with Lasix Continuing with nebulizer. Continuing with pain medication Continuing with IV antibiotic Rocephin and Zithromax. will follow up with echo This medical document was created using an electronic medical record system with M*M flurency direct computerized dictation system. Although this document has been carefully reviewed, there may still be some phonetic and typographical errors. These areas are purely typographical due to imperfections of the software programs, and do not reflect any compromise in the patient's medical care. Plan discussed with: Patient My Orders Orders - SHAHEEN MARTINEZ MD Procedure Category Date Status Time R Ankle 2 View Xray XY 10/06/24 Resulted 11:22 Hydrocodone-Acet PHA 10/06/24 In Process 5/325mg Tab ([place] 13:15 Lorazepam 2mg/Ml Inj PHA 10/06/24 In Process (Ativan Inj) 13:15 Date of Service: Oct 07, 2024 Billing Provider: SHAHEEN MARTINEZ MD Common Visit Codes: [id number] INP/OBS CARE(HIGH) SHAHEEN MARTINEZ MD Oct 07, 2024 11:20
[2024-10-07] MEDS: ALBUTEROL SULF 2.5 MG/0.5ML(0.5%) NEB SOLN NEB PRN (13:34)
[2024-10-07] MEDS: IPRATROPIUM BROM 0.5 MG/2.5ML INH SOL NEB PRN (13:35)
--- NOTE | 2024-10-07 13:46 | DVHINCON2 ---
Date Seen: Oct 07, 2024 Referring Physician MD Rachell Reason for Consultation Chest pain History of Present Illness This is a 53-year-old female who presented from a [facility] to the emergency room via EMS with a chief complaint of chest pain and SOB on 10/04/2024. Described the chest pain as substernal, non-radiating, worse with movement, and associated with SOB and a productive cough. At time of a ssessment, the patient denied any further chest pain. She is somewhat a poor historian secondary to a cognitive delay. She underwent multiple 12 lead electrocardiogram revealing a normal sinus rhythm. Serial troponin levels are negative. Unable to state if there was a cardiac catheterization in the past. Significant medical history includes congestive heart failure, hypertension, asthma, chronic respiratory failure with O2 dependence PRN, internal/external hemorrhoids, intellectual disability, and morbid obesity. Past Medical History Past medical history reviewed. No other significant than mentioned above. Past Surgical History Per records, none past surgical history. Family History: Patient reports no known family medical history. Family History Unknown family history. Social History Denies the use of illicit drugs, alcohol, or tobacco use. Allergies: Coded Allergies: NO KNOWN ALLERGIES (Unverified , 01/03/12) Home Meds Reported Medications Ferrous Sulfate (Iron) 325 Mg Tab, 1 TAB PO DAILY 10/04/24 Potassium Chloride (Potassium Chloride ER) 20 Meq Tab, 1 TAB PO DAILY 10/04/24 Sennosides-Docusate Sodium (Senna Plus 50-8.6 mg) 1 Cap Cap, 1 CAP PO BID 10/04/24 Furosemide (Furosemide) 40 Mg Tab, 1 TAB PO DAILY 10/04/24 Lisinopril (Lisinopril) 2.5 Mg Tab, 1 TAB PO DAILY 10/04/24 Metoprolol Succinate (Metoprolol Succinate Er) 25 Mg Tab, 1 TAB PO DAILY 10/04/24 Home Meds Home medications reviewed. Current Medications Current Medications Medications (Trade) Dose Ordered Sig/David Route PRN Reason Start Time Stop Time Status Last Admin Methylprednisolone Sodium Succinate (Solu Medrol) 60 mg Q8HR IV 10/07/24 14:00 UNV Albuterol (Ventolin Medneb) 2.5 mg Q6HPRN PRN NEB SHORTNESS OF BREATH 10/07/24 12:15 UNV Ipratropium [place] (Atrovent Medneb) 0.5 mg Q6HPRN PRN NEB SHORTNESS OF BREATH 10/07/24 12:15 UNV Review of Systems Constitutional: No symptom reported Ears, Nose, & Throat: No symptom reported Eyes: No symptom reported Neurological: No symptoms reported Pulmonary/Respiratory: SOB, productive cough Cardiovascular: Chest pain Gastrointestinal: No symptom reported Genitourinary: No symptom reported Musculoskeletal: No symptom reported Skin: No symptom reported Psychiatric: No symptom reported Endocrine: No symptom reported Hemotologic/Lymphatic: No symptom reported Vital Signs Vital Signs Date Time Temp Pulse Resp B/P (MAP) Pulse Ox O2 Delivery O2 Flow Rate FiO2 10/07/24 10:00 96/54 10/07/24 05:00 97.9 80 18 90 97.9 10/06/24 20:00 Nasal Cannula* 2 28 Physical Exam General Appearance: Cooperative. Morbidly obese. Mild acute respiratory distress Head Exam: Normal inspection Neck Exam: Normal inspection. Non-tender. Normal alignment Pulmonary/Respiratory: Chest non-tender. Inspiratory/expiratory wheezing present Cardiovascular/Chest: Regular rate and rhythm. S1, S2. NSR. No murmurs. No JVD. Peripheral Pulses: 2+ Radial (R). 2+ Radial (L). 2+ Pedal (R). 2+ Pedal (L) Abdominal Exam: Normal bowel sounds. Soft. Nontender. Ankle Exam: Positive ankle edema Lower extremities: Positive lower extremity edema Neuro/Mental Status: A&O x2. Mostly coherent. Cognitive delay present Thoughts/Psych: Normal thought pattern. Appropriate mood and affect. Good judgement and insight Appearance: Mild acute respiratory distress Skin Exam: Normal inspection. Normal color. Warm. Dry Labs/Diagnostic Data Labs Test 10/06/24 07:02 10/05/24 06:27 10/04/24 15:06 10/04/24 12:56 Range/Units Sodium Level 140 136-145 mmol/L Potassium Level 4.4 3.5-5.1 mmol/L Chloride Level 103 98-107 mmol/L Carbon Dioxide Level 29 20-31 mmol/L Anion Gap 8 5-15 Blood Urea Nitrogen 14 9-23 mg/dL Creatinine 1.06 H 0.550-1.02 mg/dL Glomerular Filtration Rate Calc 63 >90 mL/min BUN/Creatinine Ratio 13.2 10.0-20.0 Serum Glucose 104 74-106 mg/dL Calcium Level 10.4 8.7-10.4 mg/dL White Blood Count 9.3 4.4-10.8 10^3/uL Red Blood Count 5.06 4.0-5.20 10^6/uL Hemoglobin 14.3 12.2-16.2 g/dL Hematocrit 44.0 # 36.0-46.0 % Mean Corpuscular Volume 86.9 80.0-100.0 fL Mean Corpuscular Hemoglobin 28.2 28.0-32.0 pg Mean Corpuscular Hemoglobin Concent 32.4 32.0-36.0 g/dL Red Cell Distribution Width 15.3 H 11.8-14.3 % Platelet Count 258 140-450 10^3/uL Mean Platelet Volume 9.8 6.9-10.8 fL Neutrophils (%) (Auto) 75.8 37.0-80.0 % Lymphocytes (%) (Auto) 14.3 10.0-50.0 % Monocytes (%) (Auto) 4.5 0.0-12.0 % Eosinophils (%) (Auto) 4.4 0.0-7.0 % Basophils (%) (Auto) 1.0 0.0-2.0 % Neutrophils # (Auto) 7.0 1.6-8.6 10 ^3/uL Lymphocytes # (Auto) 1.3 0.4-5.4 10 ^3/uL Monocytes # (Auto) 0.4 0-1.3 10 ^3/uL Eosinophils # (Auto) 0.4 0-0.8 10 ^3/uL Basophils # (Auto) 0.1 0-0.2 10 ^3/uL Nucleated Red Blood Cells 0.2 % Magnesium Level 2.3 1.6-2.6 mg/dL Troponin I High Sensitivity 3 L </=34 ng/L Triglycerides Level 84 < 150 mg/dL Cholesterol Level 157 < 200 mg/dL LDL Cholesterol 95 < 100 mg/dL HDL Cholesterol 50 40-59 mg/dL Thyroid Stimulating Hormone (TSH) 4.04 0.55-4.78 uIU/mL Lactic Acid Level 1.6 0.4-2.0 mmol/L Total Bilirubin 0.4 0.2-1.0 mg/dL Aspartate Amino Transferase (AST) 17 13-40 U/L Alanine Aminotransferase (ALT) 21 7-40 U/L Alkaline Phosphatase 71 46-116 U/L Total Protein 8.0 5.7-8.2 g/dL Albumin 4.6 3.2-4.8 g/dL Lipase 37 12-53 U/L Test 10/04/24 12:30 10/04/24 00:00 Range/Units Hemoglobin A1c 5.7 <5.7 % A1C B-Type Natriuretic Peptide 7.80 0-100 pg/mL Urine Color Light-yellow Yellow Urine Clarity Clear Clear Urine pH 6.0 5.0-9.0 Urine Specific [place] 1.011 1.001-1.035 Urine Protein Negative Negative Urine Ketones Negative Negative Urine Blood Negative Negative /uL Urine Nitrite Negative Negative Urine Bilirubin Negative Negative Urine Urobilinogen Normal Negative mg/dL Urine Leukocyte Esterase Negative Negative /uL Urine RBC 1 0 - 4 /hpf Urine Microscopic WBC < 1 0-5 /HPF Urine Squamous Epithelial Cells None seen <5 /hpf Urine Bacteria None seen None Seen /hpf Urine Glucose Normal Normal mg/dL Urine Opiates Screen Neg NEGATIVE Urine Fentanyl Screen Neg NEGATIVE Urine Barbiturates Screen Neg NEGATIVE Urine Phencyclidine Screen Neg NEGATIVE Urine Amphetamines Screen Neg NEGATIVE Urine Benzodiazepines Screen Neg NEGATIVE Urine Cocaine Screen Neg NEGATIVE Urine Cannabinoids Screen Neg NEGATIVE Assessment Acute on chronic decompensated HFpEF 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 Back) Transthoracic echocardiogram revealed LVEF of 65% with suspected severe RV failure including a hypokinetic/dilated RV and dyskinesis of IVS. We will repeat an echocardiogram with bubble study to rule out congenital heart disease. Patient presents with a heart score of two points placing her at a low risk for major cardiac events. Consider an outpatient stress test and sleep apnea study if deemed necessary. Monitor ECG changes and notify. Continue Pulmonology recommendations. Further orders per clinical course. Thank you for allowing us to participate in this patient's care. Please call if you have any questions or concerns. This medical document was created using an electronic medical record system with voice recognition software and computerized dictation system. Although this document has been carefully reviewed, there might still be some phonetic and typographical errors. Occasional wrong-word or ``sound-alike substitutions may have occurred due to the inherent limitations of voice recognition software. These areas are purely typographical due to imperfections of the software programs and do not reflect any compromise in the patient's medical care. Please read the chart carefully and recognize, using context, where these substitutions have occurred. Plan discussed with: Patient, Other NYHA Physical activity limitations: Class2(Slight)fatigue,sob (palpitatns, angina w activityv) Date of Service: Oct 07, 2024 Billing Provider: JOSELIN MIRZA Cardiology Common Codes: [id number] INP/OBS CARE (High) JOSELIN MIRZA Oct 07, 2024 13:46
[2024-10-07] MEDS: methylPREDNISolone SOD SUCC 125 MG/2 ML VL IV SCH (15:41)
[2024-10-07] MEDS: METOPROLOL TARTRATE 25 MG TAB PO SCH (21:53)
[2024-10-08] VITALS (12 sets, daily range): BP systolic 96–113; BP diastolic 57–66; PULSE 82–104; RESP 16–20; TEMP 97.9–98.5; O2SAT 90–96
--- NOTE | 2024-10-08 07:14 | DVH ---
EXAM: XR Chest, 1 View CLINICAL INDICATION: CHF TECHNIQUE: Frontal view of the chest. COMPARISON: XY CHEST PORTABLE on DOS: 10/04/24, CHEST PORTABLE on DOS: 02/09/21 FINDINGS: LUNGS AND PLEURAL SPACES: Unremarkable. No consolidation. No pneumothorax. HEART: Unremarkable. No cardiomegaly. MEDIASTINUM: Unremarkable. Normal mediastinal contour. BONES/JOINTS: Unremarkable. No acute fracture. OTHER FINDINGS: . None. IMPRESSION: No acute cardiopulmonary process.
[2024-10-08 09:04] LABS: Basophils # (auto) 0 10 ^3/uL (0-0.2); Eosinophils # (auto) 0.1 10 ^3/uL (0-0.8); Eosinophils % (auto) 0.9 % (0.0-7.0); Hematocrit 44.4 % (36.0-46.0); Hemoglobin 14.5 g/dL (12.2-16.2); Lymphocytes # (auto) 0.5 10 ^3/uL (0.4-5.4); Lymphocytes % (auto) 3.6 % (10.0-50.0); Mean Corpuscular Hemoglobin 27.9 pg (28.0-32.0); Mean Corpuscular Hgb Conc. 32.7 g/dL (32.0-36.0); Mean Corpuscular Volume 85.3 fL (80.0-100.0); Monocytes # (auto) 0.1 10 ^3/uL (0-1.3); Monocytes % (auto) 0.9 % (0.0-12.0); Neutrophils # (auto) 12.7 10 ^3/uL (1.6-8.6); Neutrophils % (auto) 94.6 % (37.0-80.0); Nucleated Red Blood Cells % 0.1 %; Platelet Count (auto) 283 10^3/uL (140-450); Red Cell Distribution Width 14.9 % (11.8-14.3); White Blood Cell 13.4 10^3/uL (4.4-10.8)
[2024-10-08] MEDS: EMPAGLIFLOZIN 10 MG TAB PO SCH (10:24)
[2024-10-08 11:18] LABS: Chloride 103 mmol/L (98-107); Sodium 141 mmol/L (136-145)
[2024-10-08 11:19] LABS: Anion Gap 14 (5-15); Calcium 10.2 mg/dL (8.7-10.4); Carbon Dioxide 24 mmol/L (20-31); Potassium 5.4 mmol/L (3.5-5.1)
[2024-10-08 11:24] LABS: BUN/Creatinine Ratio 22.6 (10.0-20.0); Blood Urea Nitrogen 26 mg/dL (9-23); Glucose 155 mg/dL (74-106)
--- NOTE | 2024-10-08 12:32 | DVHDS2 ---
Discharge Summary Date of Admission Oct 04, 2024 at 15:07 Date of Discharge: Oct 08, 2024 Labs/Diagnostic Data: Laboratory Results Test 10/08/24 08:45 10/08/24 08:04 10/05/24 06:27 10/04/24 15:06 White Blood Count 13.4 10^3/uL (4.4-10.8) Red Blood Count 5.20 10^6/uL (4.0-5.20) Hemoglobin 14.5 g/dL (12.2-16.2) Hematocrit 44.4 % (36.0-46.0) Mean Corpuscular Volume 85.3 fL (80.0-100.0) Mean Corpuscular Hemoglobin 27.9 pg (28.0-32.0) Mean Corpuscular Hemoglobin Concent 32.7 g/dL (32.0-36.0) Red Cell Distribution Width 14.9 % (11.8-14.3) Platelet Count 283 10^3/uL (140-450) Mean Platelet Volume 9.8 fL (6.9-10.8) Neutrophils (%) (Auto) 94.6 % (37.0-80.0) Lymphocytes (%) (Auto) 3.6 % (10.0-50.0) Monocytes (%) (Auto) 0.9 % (0.0-12.0) Eosinophils (%) (Auto) 0.9 % (0.0-7.0) Basophils (%) (Auto) 0.0 % (0.0-2.0) Neutrophils # (Auto) 12.7 10 ^3/uL (1.6-8.6) Lymphocytes # (Auto) 0.5 10 ^3/uL (0.4-5.4) Monocytes # (Auto) 0.1 10 ^3/uL (0-1.3) Eosinophils # (Auto) 0.1 10 ^3/uL (0-0.8) Basophils # (Auto) 0 10 ^3/uL (0-0.2) Nucleated Red Blood Cells 0.1 % Sodium Level 141 mmol/L (136-145) Potassium Level 5.4 mmol/L (3.5-5.1) Chloride Level 103 mmol/L (98-107) Carbon Dioxide Level 24 mmol/L (20-31) Anion Gap 14 (5-15) Blood Urea Nitrogen 26 mg/dL (9-23) Creatinine 1.15 mg/dL (0.550-1.02) Glomerular Filtration Rate Calc 57 mL/min (>90) BUN/Creatinine Ratio 22.6 (10.0-20.0) Serum Glucose 155 mg/dL (74-106) Calcium Level 10.2 mg/dL (8.7-10.4) Magnesium Level 2.3 mg/dL (1.6-2.6) Troponin I High Sensitivity 3 ng/L (</=34) Triglycerides Level 84 mg/dL (< 150) Cholesterol Level 157 mg/dL (< 200) LDL Cholesterol 95 mg/dL (< 100) HDL Cholesterol 50 mg/dL (40-59) Thyroid Stimulating Hormone (TSH) 4.04 uIU/mL (0.55-4.78) Test 10/04/24 12:56 10/04/24 12:30 10/04/24 00:00 Lactic Acid Level 1.6 mmol/L (0.4-2.0) Total Bilirubin 0.4 mg/dL (0.2-1.0) Aspartate Amino Transferase (AST) 17 U/L (13-40) Alanine Aminotransferase (ALT) 21 U/L (7-40) Alkaline Phosphatase 71 U/L (46-116) Total Protein 8.0 g/dL (5.7-8.2) Albumin 4.6 g/dL (3.2-4.8) Lipase 37 U/L (12-53) Hemoglobin A1c 5.7 % A1C (<5.7) B-Type Natriuretic Peptide 7.80 pg/mL (0-100) Urine Color Light-yellow (Yellow) Urine Clarity Clear (Clear) Urine pH 6.0 (5.0-9.0) Urine Specific [place] 1.011 (1.001-1.035) Urine Protein Negative (Negative) Urine Ketones Negative (Negative) Urine Blood Negative /uL (Negative) Urine Nitrite Negative (Negative) Urine Bilirubin Negative (Negative) Urine Urobilinogen Normal mg/dL (Negative) Urine Leukocyte Esterase Negative /uL (Negative) Urine RBC 1 /hpf (0 - 4) Urine Microscopic WBC < 1 /HPF (0-5) Urine Squamous Epithelial Cells None seen /hpf (<5) Urine Bacteria None seen /hpf (None Seen) Urine Glucose Normal mg/dL (Normal) Urine Opiates Screen Neg (NEGATIVE) Urine Fentanyl Screen Neg (NEGATIVE) Urine Barbiturates Screen Neg (NEGATIVE) Urine Phencyclidine Screen Neg (NEGATIVE) Urine Amphetamines Screen Neg (NEGATIVE) Urine Benzodiazepines Screen Neg (NEGATIVE) Urine Cocaine Screen Neg (NEGATIVE) Urine Cannabinoids Screen Neg (NEGATIVE) Other Laboratory Tests 10/08/24 08:45 10/08/24 08:04 Final Diagnosis/Problems List chest pain Discharge Disposition: Home Discharge Instruct/Medications Diet: Cardiac 2g Na,low cholest Activity: No Restrictions, As Tolerated Follow Up/Referral: pcp 1-2 weeks Medications: Zpak continue home meds Discharge Statement: "Patient was advised to return to the ER or call 911 if any headaches, dizziness, shortness of breath, chest pain, abdominal pain, bleeding, fevers, or worsening of medical condition. Patient was counseled about treatment plan, medications, possible side effects, patientverbalized understanding. All questions were answered to the best of my ability. This discharge took greater then 30 minutes in planning, reviewing documentation, counseling the patient, and discussing with other team members." ASSESSMENT ASSESSMENT Assessment chest pain SHAHEEN MARTINEZ MD Oct 08, 2024 12:32
--- NOTE | 2024-10-08 14:18 | DVHINCON2 ---
Date of service: Oct 08, [address] efren johnston Reason for Consultation dyspnea and a h/o asthma History of Present Illness HPI 53 yo female, h/o obesity and asthma, poor historian, presented with shortness of breath. denies cough or fever Home Meds Reported Medications Ferrous Sulfate (Iron) 325 Mg Tab, 1 TAB PO DAILY 10/04/24 Potassium Chloride (Potassium Chloride ER) 20 Meq Tab, 1 TAB PO DAILY 10/04/24 Sennosides-Docusate Sodium (Senna Plus 50-8.6 mg) 1 Cap Cap, 1 CAP PO BID 10/04/24 Furosemide (Furosemide) 40 Mg Tab, 1 TAB PO DAILY 10/04/24 Lisinopril (Lisinopril) 2.5 Mg Tab, 1 TAB PO DAILY 10/04/24 Metoprolol Succinate (Metoprolol Succinate Er) 25 Mg Tab, 1 TAB PO DAILY 10/04/24 Past Medical History Cardiac: No pertinent Hx Pulmonary: Asthma Central Nervous System: No pertinent Hx GI: No pertinent Hx Hemotology/Oncology: No pertinent Hx Hepatobiliary: No pertinent Hx Psychiatric: No pertinent Hx Musculoskeletal: No pertinent Hx Rheumotologic: No pertinent Hx Infectious Disease: No peritnent Hx ENT: No pertinent Hx Renal/: No pertinent Hx Endocrine: No pertinent Hx Dermatology: No pertinent Hx Past Surgical History: No pertinent Hx Family History: No pertinent Hx Patient Family History: Patient reports no known family medical history. Review of Systems Constitutional: No symptom reported Ears, Nose, & Throat: No symptom reported Eyes: No symptom reported Pulmonary/Respiratory: Dyspnea Cardiovascular: No symptom reported Gastrointestinal: No symptom reported Genitourinary: No symptom reported Musculoskeletal: No symptom reported Skin: No symptom reported Psychiatric: No symptom reported Endocrine: No symptom reported Hemotologic/Lymphatic: No symptom reported H&P Exam Vital Signs Vital Signs Date Time Temp Pulse Resp B/P (MAP) Pulse Ox O2 Delivery O2 Flow Rate FiO2 10/08/24 13:00 98.3 93 18 103/66 (78) 98.3 10/08/24 10:08 90 Nasal Cannula* 2 28 General Appeara: Well developed, Well nourished, Normal Appearance Head Exam: Normal inspection Neck Exam: Normal inspection, Non-tender, Normal alignment Eye Exam: bilateral eye Normal inspection, bilateral eye PERRL Ear Exam: bilateral ear Auricle normal, bilateral ear Canal normal Nasal Exam: Normal inspection Mouth: Normal Inspection Pulmonary/Respiratory: Lungs clear Peripheral Pulses: 4+ carotid (R), 4+ carotid (L) Abdominal Exam: Normal bowel sounds Labs/Xrays Labs Test 10/08/24 08:45 10/08/24 08:04 10/05/24 06:27 10/04/24 15:06 Range/Units White Blood Count 13.4 #H 4.4-10.8 10^3/uL Red Blood Count 5.20 4.0-5.20 10^6/uL Hemoglobin 14.5 12.2-16.2 g/dL Hematocrit 44.4 36.0-46.0 % Mean Corpuscular Volume 85.3 80.0-100.0 fL Mean Corpuscular Hemoglobin 27.9 L 28.0-32.0 pg Mean Corpuscular Hemoglobin Concent 32.7 32.0-36.0 g/dL Red Cell Distribution Width 14.9 H 11.8-14.3 % Platelet Count 283 140-450 10^3/uL Mean Platelet Volume 9.8 6.9-10.8 fL Neutrophils (%) (Auto) 94.6 H 37.0-80.0 % Lymphocytes (%) (Auto) 3.6 L 10.0-50.0 % Monocytes (%) (Auto) 0.9 0.0-12.0 % Eosinophils (%) (Auto) 0.9 0.0-7.0 % Basophils (%) (Auto) 0.0 0.0-2.0 % Neutrophils # (Auto) 12.7 H 1.6-8.6 10 ^3/uL Lymphocytes # (Auto) 0.5 0.4-5.4 10 ^3/uL Monocytes # (Auto) 0.1 0-1.3 10 ^3/uL Eosinophils # (Auto) 0.1 0-0.8 10 ^3/uL Basophils # (Auto) 0 0-0.2 10 ^3/uL Nucleated Red Blood Cells 0.1 % Sodium Level 141 136-145 mmol/L Potassium Level 5.4 H 3.5-5.1 mmol/L Chloride Level 103 98-107 mmol/L Carbon Dioxide Level 24 20-31 mmol/L Anion Gap 14 5-15 Blood Urea Nitrogen 26 H 9-23 mg/dL Creatinine 1.15 H 0.550-1.02 mg/dL Glomerular Filtration Rate Calc 57 >90 mL/min BUN/Creatinine Ratio 22.6 H 10.0-20.0 Serum Glucose 155 H 74-106 mg/dL Calcium Level 10.2 8.7-10.4 mg/dL Magnesium Level 2.3 1.6-2.6 mg/dL Troponin I High Sensitivity 3 L </=34 ng/L Triglycerides Level 84 < 150 mg/dL Cholesterol Level 157 < 200 mg/dL LDL Cholesterol 95 < 100 mg/dL HDL Cholesterol 50 40-59 mg/dL Thyroid Stimulating Hormone (TSH) 4.04 0.55-4.78 uIU/mL Test 10/04/24 12:56 10/04/24 12:30 10/04/24 00:00 Range/Units Lactic Acid Level 1.6 0.4-2.0 mmol/L Total Bilirubin 0.4 0.2-1.0 mg/dL Aspartate Amino Transferase (AST) 17 13-40 U/L Alanine Aminotransferase (ALT) 21 7-40 U/L Alkaline Phosphatase 71 46-116 U/L Total Protein 8.0 5.7-8.2 g/dL Albumin 4.6 3.2-4.8 g/dL Lipase 37 12-53 U/L Hemoglobin A1c 5.7 <5.7 % A1C B-Type Natriuretic Peptide 7.80 0-100 pg/mL Urine Color Light-yellow Yellow Urine Clarity Clear Clear Urine pH 6.0 5.0-9.0 Urine Specific [place] 1.011 1.001-1.035 Urine Protein Negative Negative Urine Ketones Negative Negative Urine Blood Negative Negative /uL Urine Nitrite Negative Negative Urine Bilirubin Negative Negative Urine Urobilinogen Normal Negative mg/dL Urine Leukocyte Esterase Negative Negative /uL Urine RBC 1 0 - 4 /hpf Urine Microscopic WBC < 1 0-5 /HPF Urine Squamous Epithelial Cells None seen <5 /hpf Urine Bacteria None seen None Seen /hpf Urine Glucose Normal Normal mg/dL Urine Opiates Screen Neg NEGATIVE Urine Fentanyl Screen Neg NEGATIVE Urine Barbiturates Screen Neg NEGATIVE Urine Phencyclidine Screen Neg NEGATIVE Urine Amphetamines Screen Neg NEGATIVE Urine Benzodiazepines Screen Neg NEGATIVE Urine Cocaine Screen Neg NEGATIVE Urine Cannabinoids Screen Neg NEGATIVE Assessment/Plan Plan asthma obesity atelectases pt seen and examined CXR normal lungs no wheezing rec steroids with taper bronchodilators hold off abx 02as needed incentive spirometry dvt proph Plan discussed with: Patient ARMANI FRASER MD Oct 08, 2024 14:18
--- NOTE | 2024-10-08 17:06 | DVHPN2 ---
Consult Progress Note Date Seen: Oct 08, 2024 Subjective Review of Systems: CVS:Normal, RESPIRATORY:Normal, NEURO:Normal Objective vital signs Vital Sign Date Time Temp Pulse Resp B/P (MAP) Pulse Ox O2 Delivery O2 Flow Rate FiO2 10/08/24 17:00 98.0 104 18 107/57 (74) 90 98.0 10/08/24 10:08 Nasal Cannula* 2 28 Total Intake and Output 10/07/24 10/07/24 10/08/24 15:00 23:00 07:00 Intake Total 1000 ml Balance 1000 ml medications Current Medications Medications Dose Ordered Sig/David Route Start Time Stop Time Status Last Admin Dose Admin Ceftriaxone Sodium 50 ml @ 100 mls/hr DAILY@09 IV 10/04/24 15:15 10/08/24 10:23 100 MLS/HR Azithromycin 250 ml @ 125 mls/hr DAILY IV 10/04/24 15:15 10/08/24 11:26 125 MLS/HR Aspirin 81 mg DAILY PO 10/05/24 10:00 10/08/24 10:24 81 MG Atorvastatin Calcium 40 mg HS PO 10/04/24 22:00 10/07/24 21:49 40 MG Acetaminophen 650 mg Q6HP PRN PO 10/04/24 15:15 10/06/24 06:12 650 MG Ondansetron HCl 4 mg Q4HP PRN IV 10/04/24 15:15 Nitroglycerin 0.4 mg Q5MINP PRN SL 10/04/24 15:15 Morphine Sulfate 2 mg Q30M PRN IV 10/04/24 15:15 Patient Own Medication 1 cap BID PO 10/04/24 22:00 Enoxaparin Sodium 40 mg DAILY SC 10/05/24 10:00 10/08/24 10:24 40 MG Furosemide 40 mg BIDD IV 10/04/24 18:00 10/08/24 05:55 40 MG Ferrous Sulfate 325 mg DAILY PO 10/05/24 10:00 10/08/24 10:24 325 MG Acetaminophen/ Hydrocodone Bitart 1 tab Q4HPRN PRN PO 10/06/24 13:15 10/07/24 10:36 1 TAB Lorazepam 1 mg Q4HPRN PRN IV 10/06/24 13:15 10/07/24 15:41 1 MG Methylprednisolone Sodium Succinate 60 mg Q8HR IV 10/07/24 14:00 10/08/24 15:57 60 MG Albuterol 2.5 mg Q6HPRN PRN NEB 10/07/24 12:15 10/07/24 13:34 2.5 MG Ipratropium [place] 0.5 mg Q6HPRN PRN NEB 10/07/24 12:15 10/07/24 13:35 0.5 MG Metoprolol Tartrate 12.5 mg BID PO 10/07/24 22:00 10/07/24 21:53 12.5 MG Empaglifozin 10 mg DAILY PO 10/08/24 10:00 10/08/24 10:24 10 MG Examination: GENERAL:Abnormal (Morbidly obese), LUNGS:Abnormal (O2 via NC), CVS:Normal, NEURO:Abnormal (Cognitive delay present) laboratory and microbiology Laboratory Tests 10/08/24 08:45 10/08/24 08:04 Test 10/08/24 08:04 Range/Units Serum Glucose 155 H 74-106 mg/dL Problem List/Assessment/Plan Problem List/Assessment/Plan Acute on chronic decompensated HFpEF 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 Back) Transthoracic echocardiogram revealed LVEF of 65% with suspected severe RV failure including a hypokinetic/dilated RV and dyskinesis of IVS. Follow as outpatient for repeat echocardiogram with bubble study to rule out congenital heart disease. The patient presents with a heart score of two points placing her at a low risk for major cardiac events. Consider an outpatient stress test and sleep apnea study if deemed necessary. Continue Pulmonology recommendations. There is no further cardiac work-up indicated at this time. Kindly call if in need to re-consult. Thank you for allowing us to participate in this patient's care. This medical document was created using an electronic medical record system with voice recognition software and computerized dictation system. Although this document has been carefully reviewed, there might still be some phonetic and typographical errors. Occasional wrong-word or ``sound-alike substitutions may have occurred due to the inherent limitations of voice recognition software. These areas are purely typographical due to imperfections of the software programs and do not reflect any compromise in the patient's medical care. Please read the chart carefully and recognize, using context, where these substitutions have occurred. Plan discussed with: Patient, Other Dietary Evaluation Review Recommendations by RD: Protein Supplementation Comments: 1) Encourage optimal PO intake. Initiate Glucerna qd 2) Initiate multivitamin @ 1 tb qd 3) Refer to outpatient RD for weight management 4) Follow-up with pulmonology and cardiology 5) Continue to monitor I&O, labs, and skin integrity Expected Outcomes/Goals: 1) appetite and labs to improve 2) f/u in 3-5 days Date of Service: Oct 08, 2024 Billing Provider: JOSELIN MIRZA Cardiology Common Codes: [id number] INP/OBS CARE(Mod) JOSELIN MIRZA Oct 08, 2024 17:06
--- NOTE | 2024-10-08 22:40 | DVHPN2 ---
Subjective The patient is seen and examined at bedside. Still have shortness for breath. Want to go home. Reviewed: Care Plan, H&P, Labs, Medications, Previous Orders, Radiology Changes from previous H/P or p: No Changes Cardiovascular: Chest Pain Respiratory: Shortness of breath, Sputum Objective Vitals Vital Signs Date Time Temp Pulse Resp B/P (MAP) Pulse Ox O2 Delivery O2 Flow Rate FiO2 10/08/24 21:53 97 110/57 10/08/24 21:00 98.5 20 92 98.5 10/08/24 19:35 Nasal Cannula 4.0 10/08/24 19:35 36 Intake/Output Intake and Output 10/08/24 07:00 Intake Total 1000 ml Balance 1000 ml Intake Oral 700 ml IV Total 300 ml General Appearance: Alert, Cooperative, No acute distress HEENT: Atraumatic, PERRLA, EOMI, Mucous membr. moist/pink Neck: Supple Lungs: Clear to auscultation, Normal air movement Cardiovascular: Regular rate, Normal S1, Normal S2, No murmurs, Gallops, Rubs Abdomen: Normal bowel sounds, Soft, No tenderness Neuro: Cranial nerves 3-12 NL Psych/Mental Status: Mental status NL Medications Current Medications Medications Dose Ordered Sig/David Route Start Time Stop Time Status Last Admin Dose Admin Ceftriaxone Sodium 50 ml @ 100 mls/hr DAILY@09 IV 10/04/24 15:15 10/08/24 10:23 100 MLS/HR Azithromycin 250 ml @ 125 mls/hr DAILY IV 10/04/24 15:15 10/08/24 11:26 125 MLS/HR Aspirin 81 mg DAILY PO 10/05/24 10:00 10/08/24 10:24 81 MG Atorvastatin Calcium 40 mg HS PO 10/04/24 22:00 10/08/24 21:53 40 MG Acetaminophen 650 mg Q6HP PRN PO 10/04/24 15:15 10/06/24 06:12 650 MG Ondansetron HCl 4 mg Q4HP PRN IV 10/04/24 15:15 Nitroglycerin 0.4 mg Q5MINP PRN SL 10/04/24 15:15 Morphine Sulfate 2 mg Q30M PRN IV 10/04/24 15:15 Patient Own Medication 1 cap BID PO 10/04/24 22:00 Enoxaparin Sodium 40 mg DAILY SC 10/05/24 10:00 10/08/24 10:24 40 MG Furosemide 40 mg BIDD IV 10/04/24 18:00 10/08/24 18:50 40 MG Ferrous Sulfate 325 mg DAILY PO 10/05/24 10:00 10/08/24 10:24 325 MG Acetaminophen/ Hydrocodone Bitart 1 tab Q4HPRN PRN PO 10/06/24 13:15 10/08/24 21:54 1 TAB Lorazepam 1 mg Q4HPRN PRN IV 10/06/24 13:15 10/07/24 15:41 1 MG Methylprednisolone Sodium Succinate 60 mg Q8HR IV 10/07/24 14:00 10/08/24 21:54 60 MG Albuterol 2.5 mg Q6HPRN PRN NEB 10/07/24 12:15 10/08/24 19:34 2.5 MG Ipratropium [place] 0.5 mg Q6HPRN PRN NEB 10/07/24 12:15 10/08/24 19:34 0.5 MG Metoprolol Tartrate 12.5 mg BID PO 10/07/24 22:00 10/08/24 21:53 12.5 MG Empaglifozin 10 mg DAILY PO 10/08/24 10:00 10/08/24 10:24 10 MG Laboratory Results Laboratory Tests 10/08/24 08:04 10/08/24 08:45 Chemistry Test 10/08/24 08:04 Calcium Level 10.2 mg/dL (8.7-10.4) Urinalysis Test 10/04/24 00:00 Urine Color Light-yellow (Yellow) Urine Clarity Clear (Clear) Urine pH 6.0 (5.0-9.0) Urine Specific [place] 1.011 (1.001-1.035) Urine Protein Negative (Negative) Urine Ketones Negative (Negative) Urine Blood Negative /uL (Negative) Urine Nitrite Negative (Negative) Urine Bilirubin Negative (Negative) Urine Urobilinogen Normal mg/dL (Negative) Urine Leukocyte Esterase Negative /uL (Negative) Urine RBC 1 /hpf (0 - 4) Urine Microscopic WBC < 1 /HPF (0-5) Urine Squamous Epithelial Cells None seen /hpf (<5) Urine Bacteria None seen /hpf (None Seen) Urine Glucose Normal mg/dL (Normal) Labs and/or images reviewed: Labs reviewed by me Assessment/Plan Assessment/Plan Chest pain Acute on chronic CHF exacerbation Green productive phlegm probable pneumonia versus pneumonitis Morbid obesity Acute hypoxic respiratory failure History of hypertension History of developmental delay History of asthma History of hemorrhoids Plan Continuing current management. Continuing with Lasix Continuing with nebulizer. Continuing with pain medication Continuing with IV antibiotic Rocephin and Zithromax. Echo review. Will contact geriatric social worker for discharge planning. This medical document was created using an electronic medical record system with [employer] computerized dictation system. Although this document has been carefully reviewed, there may still be some phonetic and typographical errors. These areas are purely typographical due to imperfections of the software programs, and do not reflect any compromise in the patient's medical care. Plan discussed with: Patient My Orders Orders - SHAHEEN MARTINEZ MD Procedure Category Date Status Time Discharge DISCHARGE 10/08/24 Transmitted 12:31 Date of Service: Oct 08, 2024 Billing Provider: SHAHEEN MARTINEZ MD Common Visit Codes: [id number] INP/OBS CARE(HIGH) SHAHEEN MARTINEZ MD Oct 08, 2024 22:40
[2024-10-09] VITALS (10 sets, daily range): BP systolic 96–123; BP diastolic 49–72; PULSE 67–79; RESP 17–20; TEMP 97.5–97.8; O2SAT 18–93
--- NOTE | 2024-10-09 09:00 | DVHSR ---
APPROVED REPORT EXAM: Two-dimensional and M-mode echocardiogram for Bubble Study only. Blood Pressure: 96/54 mmHg INDICATION Rule out congenital heart disease RISK FACTORS Height: 60, Weight: 329 Mitral Valve MitralMitral Stenosis E/A ratio0.02D MVAcm2 Other Information Technically limited study due to body habitus, patient position and for bubble study only. Conclusion MODERATELY DILATED RV AND IS HYPOKINETIC BUBBLE STUDY IS NEGATIVE DYSKINESIS OF IVS LV EF IS 65% NORMAL VALVES NO EFFUSION
--- NOTE | 2024-10-09 11:48 | DVHPN2 ---
Subjective The patient is seen and examined at bedside. No complaint today. Reviewed: Care Plan, H&P, Labs, Medications, Previous Orders, Radiology Changes from previous H/P or p: No Changes Cardiovascular: Chest Pain Respiratory: Shortness of breath, Sputum Objective Vitals Vital Signs Date Time Temp Pulse Resp B/P (MAP) Pulse Ox O2 Delivery O2 Flow Rate FiO2 10/09/24 10:25 92 Nasal Cannula* 3 32 10/09/24 09:42 75 123/72 10/09/24 08:00 20 10/09/24 05:00 97.7 97.7 Intake/Output Intake and Output 10/09/24 07:00 Intake Total 1715 ml Output Total 2525 ml Balance -810 ml Intake Oral 1415 ml IV Total 300 ml Output Urine Total 2525 ml General Appearance: Alert, Cooperative, No acute distress HEENT: Atraumatic, PERRLA, EOMI, Mucous membr. moist/pink Neck: Supple Lungs: Clear to auscultation, Normal air movement Cardiovascular: Regular rate, Normal S1, Normal S2, No murmurs, Gallops, Rubs Abdomen: Normal bowel sounds, Soft, No tenderness Neuro: Cranial nerves 3-12 NL Psych/Mental Status: Mental status NL Medications Current Medications Medications Dose Ordered Sig/David Route Start Time Stop Time Status Last Admin Dose Admin Ceftriaxone Sodium 50 ml @ 100 mls/hr DAILY@09 IV 10/04/24 15:15 10/09/24 09:39 100 MLS/HR Azithromycin 250 ml @ 125 mls/hr DAILY IV 10/04/24 15:15 10/09/24 09:52 125 MLS/HR Aspirin 81 mg DAILY PO 10/05/24 10:00 10/09/24 09:39 81 MG Atorvastatin Calcium 40 mg HS PO 10/04/24 22:00 10/08/24 21:53 40 MG Acetaminophen 650 mg Q6HP PRN PO 10/04/24 15:15 10/09/24 09:45 650 MG Ondansetron HCl 4 mg Q4HP PRN IV 10/04/24 15:15 Nitroglycerin 0.4 mg Q5MINP PRN SL 10/04/24 15:15 Morphine Sulfate 2 mg Q30M PRN IV 10/04/24 15:15 Patient Own Medication 1 cap BID PO 10/04/24 22:00 Enoxaparin Sodium 40 mg DAILY SC 4/26/25 10:00 10/09/24 09:43 40 MG Furosemide 40 mg BIDD IV 10/04/24 18:00 10/09/24 05:45 40 MG Ferrous Sulfate 325 mg DAILY PO 10/05/24 10:00 10/09/24 09:39 325 MG Acetaminophen/ Hydrocodone Bitart 1 tab Q4HPRN PRN PO 10/06/24 13:15 10/09/24 06:04 1 TAB Lorazepam 1 mg Q4HPRN PRN IV 10/06/24 13:15 10/09/24 00:23 1 MG Methylprednisolone Sodium Succinate 60 mg Q8HR IV 10/07/24 14:00 10/09/24 05:44 60 MG Albuterol 2.5 mg Q6HPRN PRN NEB 10/07/24 12:15 10/08/24 19:34 2.5 MG Ipratropium [place] 0.5 mg Q6HPRN PRN NEB 10/07/24 12:15 10/08/24 19:34 0.5 MG Metoprolol Tartrate 12.5 mg BID PO 10/07/24 22:00 10/09/24 09:42 12.5 MG Empaglifozin 10 mg DAILY PO 10/08/24 10:00 10/09/24 09:39 10 MG Laboratory Results Laboratory Tests 10/08/24 08:04 10/08/24 08:45 Urinalysis Test 10/04/24 00:00 Urine Color Light-yellow (Yellow) Urine Clarity Clear (Clear) Urine pH 6.0 (5.0-9.0) Urine Specific [place] 1.011 (1.001-1.035) Urine Protein Negative (Negative) Urine Ketones Negative (Negative) Urine Blood Negative /uL (Negative) Urine Nitrite Negative (Negative) Urine Bilirubin Negative (Negative) Urine Urobilinogen Normal mg/dL (Negative) Urine Leukocyte Esterase Negative /uL (Negative) Urine RBC 1 /hpf (0 - 4) Urine Microscopic WBC < 1 /HPF (0-5) Urine Squamous Epithelial Cells None seen /hpf (<5) Urine Bacteria None seen /hpf (None Seen) Urine Glucose Normal mg/dL (Normal) Labs and/or images reviewed: Labs reviewed by me Assessment/Plan Assessment/Plan Chest pain Acute on chronic CHF exacerbation Green productive phlegm probable pneumonia versus pneumonitis Morbid obesity Acute hypoxic respiratory failure History of hypertension History of developmental delay History of asthma History of hemorrhoids Plan Continuing current management. Continuing with Lasix Continuing with nebulizer. Continuing with pain medication Continuing with IV antibiotic Rocephin and Zithromax. PT to get the patient out of bed and ambulate Weaned off oxygen Waiting for discharge back to [facility]. This medical document was created using an electronic medical record system with [email or web address] direct computerized dictation system. Although this document has been carefully reviewed, there may still be some phonetic and typographical errors. These areas are purely typographical due to imperfections of the software programs, and do not reflect any compromise in the patient's medical care. Plan discussed with: Patient My Orders Orders - SHAHEEN MARTINEZ MD Procedure Category Date Status Time Discharge DISCHARGE 10/08/24 Transmitted 12:31 Date of Service: Oct 09, 2024 Billing Provider: SHAHEEN MARTINEZ MD Common Visit Codes: [id number] INP/OBS CARE(HIGH) SHAHEEN MARTINEZ MD Oct 09, 2024 11:48
--- NOTE | 2024-10-09 12:22 | DVHPN2 ---
Progress Note Date Seen: Oct 09, 2024 Resident Creating Document: ALEXIS PACHECO RESIDENT Medical Necessity Reason Pt with a Central, PICC or Fol: Yes The following are medically ne: Michael Catheter Subjective Review of Systems She currently has a Michael catheter in place, though she reports not typically using one at home or in her boarding care facility. The patient states she can use the toilet independently and is able to get out of bed. Objective vital signs Vital Sign Date Time Temp Pulse Resp B/P (MAP) Pulse Ox O2 Delivery O2 Flow Rate FiO2 10/09/24 10:25 92 Nasal Cannula* 3 32 10/09/24 09:42 75 123/72 10/09/24 08:00 20 10/09/24 05:00 97.7 97.7 Total Intake and Output 10/08/24 10/08/24 10/09/24 15:00 23:00 07:00 Intake Total 300 ml 540 ml 875 ml Output Total 1000 ml 1525 ml Balance 300 ml -460 ml -650 ml medications Current Medications Medications Dose Ordered Sig/David Route Start Time Stop Time Status Last Admin Dose Admin Ceftriaxone Sodium 50 ml @ 100 mls/hr DAILY@09 IV 10/04/24 15:15 10/09/24 09:39 100 MLS/HR Azithromycin 250 ml @ 125 mls/hr DAILY IV 10/04/24 15:15 10/09/24 09:52 125 MLS/HR Aspirin 81 mg DAILY PO 10/05/24 10:00 10/09/24 09:39 81 MG Atorvastatin Calcium 40 mg HS PO 10/04/24 22:00 10/08/24 21:53 40 MG Acetaminophen 650 mg Q6HP PRN PO 10/04/24 15:15 10/09/24 09:45 650 MG Ondansetron HCl 4 mg Q4HP PRN IV 10/04/24 15:15 Nitroglycerin 0.4 mg Q5MINP PRN SL 10/04/24 15:15 Morphine Sulfate 2 mg Q30M PRN IV 10/04/24 15:15 Patient Own Medication 1 cap BID PO 10/04/24 22:00 Enoxaparin Sodium 40 mg DAILY SC 10/05/24 10:00 10/09/24 09:43 40 MG Furosemide 40 mg BIDD IV 10/04/24 18:00 10/09/24 05:45 40 MG Ferrous Sulfate 325 mg DAILY PO 10/05/24 10:00 10/09/24 09:39 325 MG Acetaminophen/ Hydrocodone Bitart 1 tab Q4HPRN PRN PO 10/06/24 13:15 10/09/24 06:04 1 TAB Lorazepam 1 mg Q4HPRN PRN IV 10/06/24 13:15 10/09/24 00:23 1 MG Methylprednisolone Sodium Succinate 60 mg Q8HR IV 10/07/24 14:00 10/09/24 05:44 60 MG Albuterol 2.5 mg Q6HPRN PRN NEB 10/07/24 12:15 10/08/24 19:34 2.5 MG Ipratropium [place] 0.5 mg Q6HPRN PRN NEB 10/07/24 12:15 10/08/24 19:34 0.5 MG Metoprolol Tartrate 12.5 mg BID PO 10/07/24 22:00 10/09/24 09:42 12.5 MG Empaglifozin 10 mg DAILY PO 10/08/24 10:00 10/09/24 09:39 10 MG Examination GENERAL:Abnormal (Morbidly obese), LUNGS:Abnormal (O2 via NC), CVS:Normal, NEURO:Abnormal (Cognitive delay present) laboratory and microbiology Laboratory Tests 10/08/24 08:45 10/08/24 08:04 Test 10/08/24 08:04 Range/Units Serum Glucose 155 H 74-106 mg/dL Problem List/Assessment/Plan Problem List/Assessment/Plan asthma obesity atelectases pt seen and examined CXR normal lungs no wheezing D/C Michael Patient has a history of asthma. Current status and control of asthma symptoms Case discussed with Dr Sanon Plan discussed with: Patient Dietary Evaluation Review Recommendations by RD: Protein Supplementation Comments: 1) Encourage optimal PO intake. Initiate Glucerna qd 2) Initiate multivitamin @ 1 tb qd 3) Refer to outpatient RD for weight management 4) Follow-up with pulmonology and cardiology 5) Continue to monitor I&O, labs, and skin integrity Expected Outcomes/Goals: 1) appetite and labs to improve 2) f/u in 3-5 days Date of Service: Oct 09, 2024 Billing Provider: ARMANI SANON MD Common Visit Codes: NOT BILLABLE ALEXIS PACHECO RESIDENT Oct 09, 2024 12:22 ARMANI SANON MD October 12, 2024 14:43
[2024-10-10] VITALS (12 sets, daily range): BP systolic 103–111; BP diastolic 49–75; PULSE 72–90; RESP 16–19; TEMP 97.4–99.1; O2SAT 90–100
--- NOTE | 2024-10-10 11:52 | DVHPN2 ---
Progress Note Date Seen: October 10, 2024 Resident Creating Document: ALEXIS PACHECO RESIDENT Medical Necessity Reason Pt with a Central, PICC or Fol: Yes The following are medically ne: Michael Catheter Subjective Review of Systems Patient seen and examined at bedside, no new complaints. Objective vital signs Vital Sign Date Time Temp Pulse Resp B/P (MAP) Pulse Ox O2 Delivery O2 Flow Rate FiO2 10/10/24 10:00 92 Nasal Cannula 2.0 10/10/24 10:00 28 10/10/24 09:56 92 111/75 10/10/24 09:00 97.4 19 97.4 Total Intake and Output 10/09/24 10/09/24 10/10/24 14:59 22:59 06:59 Intake Total 50 ml 1150 ml 450 ml Output Total 6 ml Balance 50 ml 1144 ml 450 ml medications Current Medications Medications Dose Ordered Sig/David Route Start Time Stop Time Status Last Admin Dose Admin Ceftriaxone Sodium 50 ml @ 100 mls/hr DAILY@09 IV 10/04/24 15:15 10/10/24 09:57 100 MLS/HR Azithromycin 250 ml @ 125 mls/hr DAILY IV 10/04/24 15:15 10/09/24 09:52 125 MLS/HR Aspirin 81 mg DAILY PO 10/05/24 10:00 10/10/24 09:56 81 MG Atorvastatin Calcium 40 mg HS PO 10/04/24 22:00 10/09/24 21:32 40 MG Acetaminophen 650 mg Q6HP PRN PO 10/04/24 15:15 10/10/24 00:58 650 MG Ondansetron HCl 4 mg Q4HP PRN IV 10/04/24 15:15 Nitroglycerin 0.4 mg Q5MINP PRN SL 10/04/24 15:15 Morphine Sulfate 2 mg Q30M PRN IV 10/04/24 15:15 Patient Own Medication 1 cap BID PO 10/04/24 22:00 Enoxaparin Sodium 40 mg DAILY SC 10/05/24 10:00 10/10/24 09:57 40 MG Furosemide 40 mg BIDD IV 10/04/24 18:00 10/10/24 05:46 40 MG Ferrous Sulfate 325 mg DAILY PO 10/05/24 10:00 10/10/24 09:57 325 MG Acetaminophen/ Hydrocodone Bitart 1 tab Q4HPRN PRN PO 10/06/24 13:15 10/09/24 21:47 1 TAB Lorazepam 1 mg Q4HPRN PRN IV 10/06/24 13:15 10/10/24 00:51 1 MG Methylprednisolone Sodium Succinate 60 mg Q8HR IV 10/07/24 14:00 10/10/24 05:45 60 MG Albuterol 2.5 mg Q6HPRN PRN NEB 10/07/24 12:15 10/10/24 01:09 2.5 MG Ipratropium [place] 0.5 mg Q6HPRN PRN NEB 10/07/24 12:15 10/10/24 01:09 0.5 MG Metoprolol Tartrate 12.5 mg BID PO 10/07/24 22:00 10/10/24 09:56 12.5 MG Empaglifozin 10 mg DAILY PO 10/08/24 10:00 10/10/24 09:57 10 MG Examination GENERAL:Abnormal (Morbidly obese), LUNGS:Abnormal (O2 via NC), CVS:Normal, NEURO:Abnormal (Cognitive delay present) laboratory and microbiology Laboratory Tests 10/08/24 08:45 10/08/24 08:04 Test 10/08/24 08:04 Range/Units Serum Glucose 155 H 74-106 mg/dL Problem List/Assessment/Plan Problem List/Assessment/Plan asthma obesity atelectases pt seen and examined CXR normal lungs no wheezing D/C Alec Patient has a history of asthma. Current status and control of asthma symptoms Case discussed with Dr Sanon Plan discussed with: Patient My Orders My Orders Orders - ALEXIS PACHECO Procedure Category Date Status Time Discontinue Michael JAYLEN 10/09/24 In Process Catheter 12:40 Dietary Evaluation Review Recommendations by RD: Protein Supplementation Comments: 1) Encourage optimal PO intake. Initiate Glucerna qd 2) Initiate multivitamin @ 1 tb qd 3) Refer to outpatient RD for weight management 4) Follow-up with pulmonology and cardiology 5) Continue to monitor I&O, labs, and skin integrity Expected Outcomes/Goals: 1) appetite and labs to improve 2) f/u in 3-5 days Date of Service: October 10, 2024 Billing Provider: ARMANI SANON MD Common Visit Codes: NOT BILLABLE ALEXIS PACHECO RESIDENT October 10, 2024 11:51 ARMANI SANON MD October 12, 2024 14:44
--- NOTE | 2024-10-10 12:08 | DVHPN2 ---
Subjective The patient is seen and examined at bedside. No complaint today. Desat if take off oxygen. Reviewed: Care Plan, H&P, Labs, Medications, Previous Orders, Radiology Changes from previous H/P or p: No Changes Cardiovascular: Chest Pain Respiratory: Shortness of breath, Sputum Objective Vitals Vital Signs Date Time Temp Pulse Resp B/P (MAP) Pulse Ox O2 Delivery O2 Flow Rate FiO2 10/10/24 10:56 66 117/63 10/10/24 10:00 92 Nasal Cannula 2.0 10/10/24 10:00 28 10/10/24 09:00 97.4 19 97.4 Intake/Output Intake and Output 10/10/24 07:00 Intake Total 1650 ml Output Total 6 ml Balance 1644 ml Intake Oral 1350 ml IV Total 300 ml Output Urine Total 6 ml # Voids 4 General Appearance: Alert, Cooperative, No acute distress HEENT: Atraumatic, PERRLA, EOMI, Mucous membr. moist/pink Neck: Supple Lungs: Clear to auscultation, Normal air movement Cardiovascular: Regular rate, Normal S1, Normal S2, No murmurs, Gallops, Rubs Abdomen: Normal bowel sounds, Soft, No tenderness Neuro: Cranial nerves 3-12 NL Psych/Mental Status: Mental status NL Medications Current Medications Medications Dose Ordered Sig/David Route Start Time Stop Time Status Last Admin Dose Admin Ceftriaxone Sodium 50 ml @ 100 mls/hr DAILY@09 IV 10/04/24 15:15 10/10/24 09:57 100 MLS/HR Azithromycin 250 ml @ 125 mls/hr DAILY IV 10/04/24 15:15 10/10/24 11:55 125 MLS/HR Aspirin 81 mg DAILY PO 10/05/24 10:00 10/10/24 09:56 81 MG Atorvastatin Calcium 40 mg HS PO 10/04/24 22:00 10/09/24 21:32 40 MG Acetaminophen 650 mg Q6HP PRN PO 10/04/24 15:15 10/10/24 00:58 650 MG Ondansetron HCl 4 mg Q4HP PRN IV 10/04/24 15:15 Nitroglycerin 0.4 mg Q5MINP PRN SL 10/04/24 15:15 Morphine Sulfate 2 mg Q30M PRN IV 10/04/24 15:15 Patient Own Medication 1 cap BID PO 10/04/24 22:00 Enoxaparin Sodium 40 mg DAILY SC 10/05/24 10:00 10/10/24 09:57 40 MG Furosemide 40 mg BIDD IV 10/04/24 18:00 10/10/24 05:46 40 MG Ferrous Sulfate 325 mg DAILY PO 10/05/24 10:00 10/10/24 09:57 325 MG Acetaminophen/ Hydrocodone Bitart 1 tab Q4HPRN PRN PO 10/06/24 13:15 10/09/24 21:47 1 TAB Lorazepam 1 mg Q4HPRN PRN IV 10/06/24 13:15 10/10/24 00:51 1 MG Methylprednisolone Sodium Succinate 60 mg Q8HR IV 10/07/24 14:00 10/10/24 05:45 60 MG Albuterol 2.5 mg Q6HPRN PRN NEB 10/07/24 12:15 10/10/24 01:09 2.5 MG Ipratropium [place] 0.5 mg Q6HPRN PRN NEB 10/07/24 12:15 10/10/24 01:09 0.5 MG Metoprolol Tartrate 12.5 mg BID PO 10/07/24 22:00 10/10/24 09:56 12.5 MG Empaglifozin 10 mg DAILY PO 10/08/24 10:00 10/10/24 09:57 10 MG Laboratory Results Laboratory Tests 10/08/24 08:04 10/08/24 08:45 Urinalysis Test 10/04/24 00:00 Urine Color Light-yellow (Yellow) Urine Clarity Clear (Clear) Urine pH 6.0 (5.0-9.0) Urine Specific [place] 1.011 (1.001-1.035) Urine Protein Negative (Negative) Urine Ketones Negative (Negative) Urine Blood Negative /uL (Negative) Urine Nitrite Negative (Negative) Urine Bilirubin Negative (Negative) Urine Urobilinogen Normal mg/dL (Negative) Urine Leukocyte Esterase Negative /uL (Negative) Urine RBC 1 /hpf (0 - 4) Urine Microscopic WBC < 1 /HPF (0-5) Urine Squamous Epithelial Cells None seen /hpf (<5) Urine Bacteria None seen /hpf (None Seen) Urine Glucose Normal mg/dL (Normal) Labs and/or images reviewed: Labs reviewed by me Assessment/Plan Assessment/Plan Chest pain Acute on chronic CHF exacerbation Green productive phlegm probable pneumonia versus pneumonitis Morbid obesity Acute hypoxic respiratory failure History of hypertension History of developmental delay History of asthma History of hemorrhoids Plan Continuing current management. Continuing with Lasix Continuing with nebulizer. Continuing with pain medication Continuing with IV antibiotic Rocephin and Zithromax. PT to get the patient out of bed and ambulate Will get ABG to see if patient qualify for home oxygen. Per [facility], they request patient to have hospital bed. I will consult social media coordinator. Waiting for discharge back to [facility]. This medical document was created using an electronic medical record system with [employer] computerized dictation system. Although this document has been carefully reviewed, there may still be some phonetic and typographical errors. These areas are purely typographical due to imperfections of the software programs, and do not reflect any compromise in the patient's medical care. Plan discussed with: Patient My Orders Orders - SHAHEEN MARTINEZ MD Procedure Category Date Status Time * Color Separation Photographer CONS 10/10/24 Transmitted Consult Date of Service: October 10, 2024 Billing Provider: SHAHEEN MARTINEZ MD Common Visit Codes: [id number] INP/OBS CARE(HIGH) SHAHEEN MARTINEZ MD October 10, 2024 12:08
[2024-10-10 13:29] LABS: Base Excess 6.6 mmol/L (-2.0-3.0)
[2024-10-10] MEDS: methylPREDNISolone SOD SUCC 40 MG/ML VL IV SCH (21:22)
[2024-10-11] VITALS (13 sets, daily range): BP systolic 106–120; BP diastolic 53–83; PULSE 68–89; RESP 15–20; TEMP 97.3–97.5; O2SAT 92–97
--- NOTE | 2024-10-11 12:13 | DVHDS2 ---
Discharge Summary Date of Admission Oct 04, 2024 at 15:07 Date of Discharge: October 11, 2024 Admitting Diagnosis Chest pain Acute on chronic CHF exacerbation Green productive phlegm probable pneumonia versus pneumonitis Morbid obesity Acute hypoxic respiratory failure History of hypertension History of developmental delay History of asthma History of hemorrhoids Labs/Diagnostic Data: Laboratory Results Test 10/10/24 13:23 10/08/24 08:45 10/08/24 08:04 10/05/24 06:27 Blood Gas Specimen Type Arterial Blood Gas Sample Site Right radial Blood Gas Patient Temperature 37.0 Arterial Blood Date Drawn [id number] Arterial Blood pH 7.429 (7.350-7.450) Arterial Blood Partial Pressure CO2 49.9 mmHg (32.0-45.0) Arterial Blood Partial Pressure O2 51.5 mmHg (83.0-108.0) Arterial Blood HCO3 32.3 mmol/L (21.0-28.0) Arterial Blood Oxygen Saturation 84.8 % (94.0-98.0) Arterial Blood Base Excess 6.6 mmol/L (-2.0-3.0) Arterial Blood Oxyhemoglobin 84.0 % (94.0-98.0) Arterial Blood Carboxyhemoglobin 0.5 % (0.5-1.5) Arterial Blood Methemoglobin 0.5 % (0.0-1.5) Artemio Test Yes Blood Gas Total Hemoglobin 14.60 g/dL (12.0-16.0) Blood Gas Modality Room air FiO2 % 21.0 Blood Gas Critical Value Read Back yes Blood Gas Notified Whom efren Lovett md Blood Gas Notified Time [id number] Blood Gas Notified By White Blood Count 13.4 10^3/uL (4.4-10.8) Red Blood Count 5.20 10^6/uL (4.0-5.20) Hemoglobin 14.5 g/dL (12.2-16.2) Hematocrit 44.4 % (36.0-46.0) Mean Corpuscular Volume 85.3 fL (80.0-100.0) Mean Corpuscular Hemoglobin 27.9 pg (28.0-32.0) Mean Corpuscular Hemoglobin Concent 32.7 g/dL (32.0-36.0) Red Cell Distribution Width 14.9 % (11.8-14.3) Platelet Count 283 10^3/uL (140-450) Mean Platelet Volume 9.8 fL (6.9-10.8) Neutrophils (%) (Auto) 94.6 % (37.0-80.0) Lymphocytes (%) (Auto) 3.6 % (10.0-50.0) Monocytes (%) (Auto) 0.9 % (0.0-12.0) Eosinophils (%) (Auto) 0.9 % (0.0-7.0) Basophils (%) (Auto) 0.0 % (0.0-2.0) Neutrophils # (Auto) 12.7 10 ^3/uL (1.6-8.6) Lymphocytes # (Auto) 0.5 10 ^3/uL (0.4-5.4) Monocytes # (Auto) 0.1 10 ^3/uL (0-1.3) Eosinophils # (Auto) 0.1 10 ^3/uL (0-0.8) Basophils # (Auto) 0 10 ^3/uL (0-0.2) Nucleated Red Blood Cells 0.1 % Sodium Level 141 mmol/L (136-145) Potassium Level 5.4 mmol/L (3.5-5.1) Chloride Level 103 mmol/L (98-107) Carbon Dioxide Level 24 mmol/L (20-31) Anion Gap 14 (5-15) Blood Urea Nitrogen 26 mg/dL (9-23) Creatinine 1.15 mg/dL (0.550-1.02) Glomerular Filtration Rate Calc 57 mL/min (>90) BUN/Creatinine Ratio 22.6 (10.0-20.0) Serum Glucose 155 mg/dL (74-106) Calcium Level 10.2 mg/dL (8.7-10.4) Magnesium Level 2.3 mg/dL (1.6-2.6) Test 10/04/24 15:06 10/04/24 12:56 10/04/24 12:30 10/04/24 00:00 Troponin I High Sensitivity 3 ng/L (</=34) Triglycerides Level 84 mg/dL (< 150) Cholesterol Level 157 mg/dL (< 200) LDL Cholesterol 95 mg/dL (< 100) HDL Cholesterol 50 mg/dL (40-59) Thyroid Stimulating Hormone (TSH) 4.04 uIU/mL (0.55-4.78) Lactic Acid Level 1.6 mmol/L (0.4-2.0) Total Bilirubin 0.4 mg/dL (0.2-1.0) Aspartate Amino Transferase (AST) 17 U/L (13-40) Alanine Aminotransferase (ALT) 21 U/L (7-40) Alkaline Phosphatase 71 U/L (46-116) Total Protein 8.0 g/dL (5.7-8.2) Albumin 4.6 g/dL (3.2-4.8) Lipase 37 U/L (12-53) Hemoglobin A1c 5.7 % A1C (<5.7) B-Type Natriuretic Peptide 7.80 pg/mL (0-100) Urine Color Light-yellow (Yellow) Urine Clarity Clear (Clear) Urine pH 6.0 (5.0-9.0) Urine Specific [place] 1.011 (1.001-1.035) Urine Protein Negative (Negative) Urine Ketones Negative (Negative) Urine Blood Negative /uL (Negative) Urine Nitrite Negative (Negative) Urine Bilirubin Negative (Negative) Urine Urobilinogen Normal mg/dL (Negative) Urine Leukocyte Esterase Negative /uL (Negative) Urine RBC 1 /hpf (0 - 4) Urine Microscopic WBC < 1 /HPF (0-5) Urine Squamous Epithelial Cells None seen /hpf (<5) Urine Bacteria None seen /hpf (None Seen) Urine Glucose Normal mg/dL (Normal) Urine Opiates Screen Neg (NEGATIVE) Urine Fentanyl Screen Neg (NEGATIVE) Urine Barbiturates Screen Neg (NEGATIVE) Urine Phencyclidine Screen Neg (NEGATIVE) Urine Amphetamines Screen Neg (NEGATIVE) Urine Benzodiazepines Screen Neg (NEGATIVE) Urine Cocaine Screen Neg (NEGATIVE) Urine Cannabinoids Screen Neg (NEGATIVE) Other Laboratory Tests 10/08/24 08:45 10/08/24 08:04 Brief Hx & Hospital Course: This is a 53 years old female with the mental delay and past medical history of hypertension, development delay, morbid obesity, asthma, congestive heart failure come to emergency department because of cough with yellowish phlegm in increase need to use oxygen at home. The patient used 2 L nasal cannula at [facility] and does not recall how long she on that. The patient was admitted. The patient has cardiology consulted. Dr. Andrew Nick see the patient and recommend 2D echo. 2D echo showed EF of 65%. Non acute process. No further workup per cushion worker. The patient was put on IV antibiotic with Rocephin and Zithromax. Patient also was put on nebulizer and IV Solu-Medrol. The patient subsequently doing better. The patient's mother who is her conservative request to place [facility] new [facility]. We finally find a new [facility] for her but discharge delayed because the [facility] request hospital bed. Finally comp field case manager able to work with her insurance agency to give her a hospital bed so I am going to discharge her home today. Advised her to follow up with primary care physician 1-2 weeks. Follow up with cleaner and preparer per schedule. Activity as tolerated. Diet low-salt low-cholesterol diet. Physical exam: HEENT: Normocephalic atraumatic pupils equal react to light and accommodation. Extraocular muscles intact, conjunctiva pink, oropharynx moist, no thrush, no exudate. Lymphatic: No lymphadenopathy Cardiovascular exam: S1, S2 was heard. No murmurs, rubs, gallops Lung: Clear on auscultation bilaterally, no wheeze, rale, rhonchi. GI: Abdominal soft, nondistended, nontenderness, positive bowel sounds. Extremity: No crepitus, cyanosis, edema. Pedal pulses present bilateral. Full range of motion. Skin: Normal turgor, no rash. Psych: Alert, oriented x3. Neurology: No focal deficits, cranial nerve II to XII grossly intact. This medical document was created using an electronic medical record system with [employer] direct computerized dictation system. Although this document has been carefully reviewed, there may still be some phonetic and typographical errors. These areas are purely typographical due to imperfections of the software programs, and do not reflect any compromise in the patient's medical care. Condition at Discharge: Stable Final Diagnosis/Problems List Chest pain Acute on chronic CHF exacerbation Green productive phlegm probable pneumonia versus pneumonitis Morbid obesity Acute hypoxic respiratory failure History of hypertension History of developmental delay History of asthma History of hemorrhoids Discharge Disposition: Home Discharge Instruct/Medications Diet: Cardiac 2g Na,low cholest Activity: No Restrictions, As Tolerated Follow Up/Referral: pcp 1-2 weeks Medications: Zpak continue home meds Discharge Statement: "Patient was advised to return to the ER or call 911 if any headaches, dizziness, shortness of breath, chest pain, abdominal pain, bleeding, fevers, or worsening of medical condition. Patient was counseled about treatment plan, medications, possible side effects, patientverbalized understanding. All questions were answered to the best of my ability. This discharge took greater then 30 minutes in planning, reviewing documentation, counseling the patient, and discussing with other team members." ASSESSMENT ASSESSMENT Assessment chest pain Date of Service: October 11, 2024 Billing Provider: SHAHEEN LOVETT MD Common Visit Codes: [id number] DISCH DAY >30min SHAHEEN LOVETT MD October 11, 2024 12:13
--- NOTE | 2024-10-11 12:14 | DVHPN2 ---
Subjective The patient is seen and examined at bedside. No complaint today. Desat if take off oxygen. Reviewed: Care Plan, H&P, Labs, Medications, Previous Orders, Radiology Cardiovascular: Chest Pain Respiratory: Shortness of breath, Sputum Objective Vitals Vital Signs Date Time Temp Pulse Resp B/P (MAP) Pulse Ox O2 Delivery O2 Flow Rate FiO2 10/11/24 10:15 97.4 72 20 97 10/11/24 10:00 Nasal Cannula 2.0 10/11/24 10:00 28 10/11/24 09:00 112/53 (72) Intake/Output Intake and Output 10/11/24 07:00 Intake Total 1990 ml Output Total 560 ml Balance 1430 ml Intake Oral 1940 ml IV Total 50 ml Output Urine Total 560 ml # Voids 4 # Bowel Movements 1 General Appearance: Alert, Cooperative, No acute distress HEENT: Atraumatic, PERRLA, EOMI, Mucous membr. moist/pink Neck: Supple Lungs: Clear to auscultation, Normal air movement Cardiovascular: Regular rate, Normal S1, Normal S2, No murmurs, Gallops, Rubs Abdomen: Normal bowel sounds, Soft, No tenderness Neuro: Cranial nerves 3-12 NL Psych/Mental Status: Mental status NL Medications Current Medications Medications Dose Ordered Sig/David Route Start Time Stop Time Status Last Admin Dose Admin Ceftriaxone Sodium 50 ml @ 100 mls/hr DAILY@09 IV 10/04/24 15:15 10/11/24 07:56 100 MLS/HR Azithromycin 250 ml @ 125 mls/hr DAILY IV 10/04/24 15:15 10/11/24 10:02 125 MLS/HR Aspirin 81 mg DAILY PO 10/05/24 10:00 10/11/24 07:56 81 MG Atorvastatin Calcium 40 mg HS PO 10/04/24 22:00 10/10/24 21:13 40 MG Acetaminophen 650 mg Q6HP PRN PO 10/04/24 15:15 10/10/24 00:58 650 MG Ondansetron HCl 4 mg Q4HP PRN IV 10/04/24 15:15 Nitroglycerin 0.4 mg Q5MINP PRN SL 10/04/24 15:15 Morphine Sulfate 2 mg Q30M PRN IV 10/04/24 15:15 Patient Own Medication 1 cap BID PO 10/04/24 22:00 Enoxaparin Sodium 40 mg DAILY SC 10/05/24 10:00 10/11/24 07:56 40 MG Furosemide 40 mg BIDD IV 10/04/24 18:00 10/11/24 05:49 40 MG Ferrous Sulfate 325 mg DAILY PO 10/05/24 10:00 10/11/24 07:56 325 MG Acetaminophen/ Hydrocodone Bitart 1 tab Q4HPRN PRN PO 10/06/24 13:15 10/11/24 05:41 1 TAB Lorazepam 1 mg Q4HPRN PRN IV 10/06/24 13:15 10/10/24 21:13 1 MG Albuterol 2.5 mg Q6HPRN PRN NEB 10/07/24 12:15 10/10/24 01:09 2.5 MG Ipratropium [place] 0.5 mg Q6HPRN PRN NEB 10/07/24 12:15 10/10/24 01:09 0.5 MG Metoprolol Tartrate 12.5 mg BID PO 10/07/24 22:00 10/11/24 08:00 12.5 MG Empaglifozin 10 mg DAILY PO 10/08/24 10:00 10/11/24 08:12 10 MG Methylprednisolone Sodium Succinate 60 mg Q8HR IV 10/10/24 22:00 10/11/24 05:49 60 MG Laboratory Results Laboratory Tests 10/08/24 08:04 10/08/24 08:45 Urinalysis Test 10/04/24 00:00 Urine Color Light-yellow (Yellow) Urine Clarity Clear (Clear) Urine pH 6.0 (5.0-9.0) Urine Specific [place] 1.011 (1.001-1.035) Urine Protein Negative (Negative) Urine Ketones Negative (Negative) Urine Blood Negative /uL (Negative) Urine Nitrite Negative (Negative) Urine Bilirubin Negative (Negative) Urine Urobilinogen Normal mg/dL (Negative) Urine Leukocyte Esterase Negative /uL (Negative) Urine RBC 1 /hpf (0 - 4) Urine Microscopic WBC < 1 /HPF (0-5) Urine Squamous Epithelial Cells None seen /hpf (<5) Urine Bacteria None seen /hpf (None Seen) Urine Glucose Normal mg/dL (Normal) Blood Gas Results Test 10/10/24 13:23 Arterial Blood pH 7.429 (7.350-7.450) FiO2 % 21.0 Assessment/Plan Assessment/Plan Chest pain Acute on chronic CHF exacerbation Green productive phlegm probable pneumonia versus pneumonitis Morbid obesity Acute hypoxic respiratory failure History of hypertension History of developmental delay History of asthma History of hemorrhoids Plan Continuing current management. Continuing with Lasix Continuing with nebulizer. Continuing with pain medication Continuing with IV antibiotic Rocephin and Zithromax. PT to get the patient out of bed and ambulate Will get ABG to see if patient qualify for home oxygen. Per [facility], they [facility] patient to have hospital bed. I will consult social media director. Waiting for discharge back to [facility]. This medical document was created using an electronic medical record system with [employer] computerized dictation system. Although this document has been carefully reviewed, there may still be some phonetic and typographical errors. These areas are purely typographical due to imperfections of the software programs, and do not reflect any compromise in the patient's medical care. My Orders Orders - SHAHEEN MARTINEZ MD Procedure Category Date Status Time * Rugby League Footballer CONS 10/10/24 Transmitted Consult Abg W/ Co-Ox RT 10/10/24 Logged 12:59 Methylprednisolone PHA 10/10/24 In Process Sod Succ (Solu Medrol 22:00 Discharge DISCHARGE 10/11/24 Transmitted 09:25 SHAHEEN MARTINEZ MD October 11, 2024 12:14
--- NOTE | 2024-10-11 14:52 | DVHPN2 ---
Progress Note Date Seen: October 11, 2024 Resident Creating Document: ALEXIS PACHECO RESIDENT Medical Necessity Reason Pt with a Central, PICC or Fol: Yes The following are medically ne: Michael Catheter Subjective Review of Systems Patient seen and examined at bedside, no new complaints. Objective vital signs Vital Sign Date Time Temp Pulse Resp B/P (MAP) Pulse Ox O2 Delivery O2 Flow Rate FiO2 10/11/24 13:00 97.5 82 18 106/61 (76) 96 97.5 10/11/24 10:00 Nasal Cannula 2.0 10/11/24 10:00 28 Total Intake and Output 10/10/24 10/10/24 10/11/24 15:00 23:00 07:00 Intake Total 1010 ml 480 ml 500 ml Output Total 560 ml Balance 1010 ml -80 ml 500 ml medications Current Medications Medications Dose Ordered Sig/David Route Start Time Stop Time Status Last Admin Dose Admin Ceftriaxone Sodium 50 ml @ 100 mls/hr DAILY@09 IV 10/04/24 15:15 10/11/24 07:56 100 MLS/HR Azithromycin 250 ml @ 125 mls/hr DAILY IV 10/04/24 15:15 10/11/24 10:02 125 MLS/HR Aspirin 81 mg DAILY PO 10/05/24 10:00 10/11/24 07:56 81 MG Atorvastatin Calcium 40 mg HS PO 10/04/24 22:00 10/10/24 21:13 40 MG Acetaminophen 650 mg Q6HP PRN PO 10/04/24 15:15 10/10/24 00:58 650 MG Ondansetron HCl 4 mg Q4HP PRN IV 10/04/24 15:15 Nitroglycerin 0.4 mg Q5MINP PRN SL 10/04/24 15:15 Morphine Sulfate 2 mg Q30M PRN IV 10/04/24 15:15 Patient Own Medication 1 cap BID PO 10/04/24 22:00 Enoxaparin Sodium 40 mg DAILY SC 10/05/24 10:00 10/11/24 07:56 40 MG Furosemide 40 mg BIDD IV 10/04/24 18:00 10/11/24 05:49 40 MG Ferrous Sulfate 325 mg DAILY PO 10/05/24 10:00 10/11/24 07:56 325 MG Acetaminophen/ Hydrocodone Bitart 1 tab Q4HPRN PRN PO 10/06/24 13:15 10/11/24 05:41 1 TAB Lorazepam 1 mg Q4HPRN PRN IV 10/06/24 13:15 10/10/24 21:13 1 MG Albuterol 2.5 mg Q6HPRN PRN NEB 10/07/24 12:15 10/10/24 01:09 2.5 MG Ipratropium [place] 0.5 mg Q6HPRN PRN NEB 10/07/24 12:15 10/10/24 01:09 0.5 MG Metoprolol Tartrate 12.5 mg BID PO 10/07/24 22:00 10/11/24 08:00 12.5 MG Empaglifozin 10 mg DAILY PO 10/08/24 10:00 10/11/24 08:12 10 MG Methylprednisolone Sodium Succinate 60 mg Q8HR IV 10/10/24 22:00 10/11/24 13:39 60 MG Examination GENERAL:Abnormal (Morbidly obese), LUNGS:normal, CVS:Normal, NEURO:Abnormal (Cognitive delay present) laboratory and microbiology Laboratory Tests 10/08/24 08:45 10/08/24 08:04 Test 10/08/24 08:04 Range/Units Serum Glucose 155 H 74-106 mg/dL Problem List/Assessment/Plan Problem List/Assessment/Plan asthma obesity atelectases pt seen and examined CXR normal lungs no wheezing D/C Michael Patient has a history of asthma. Current status and control of asthma symptoms Case discussed with Dr Sanon Plan discussed with: Patient Dietary Evaluation Review Recommendations by RD: Protein Supplementation Comments: 1) Encourage optimal PO intake. Initiate Glucerna qd 2) Initiate multivitamin @ 1 tb qd 3) Refer to outpatient RD for weight management 4) Follow-up with pulmonology and cardiology 5) Continue to monitor I&O, labs, and skin integrity Expected Outcomes/Goals: 1) appetite and labs to improve 2) f/u in 3-5 days Date of Service: October 11, 2024 Billing Provider: ARMANI SANON MD Common Visit Codes: NOT BILLABLE ALEXIS PACHECO RESIDENT October 11, 2024 14:52 ARMANI SANON MD October 12, 2024 14:45
== END 2024-10-11 21:40 | disposition home or self-care (01) | DRG 133 ==
LOC: EDBD 11:40 → ER 11:40 → OVERFLOW 15:07 → ER 15:16 → TELE-CENTR 18:27 → TELE-WESTW 10-09 23:30
PROVIDERS: ADMIT Internal Medicine; ATTEND Internal Medicine
DX: J96.21 Acute and chronic respiratory failure with hypoxia (principal); I50.33 Acute on chronic diastolic (congestive) heart failure; J15.9 Unspecified bacterial pneumonia; J45.901 Unspecified asthma with (acute) exacerbation; Z68.43 Body mass index [BMI] 50.0-59.9, adult; I11.0 Hypertensive heart disease with heart failure; Z99.81 Dependence on supplemental oxygen; E66.01 Morbid (severe) obesity due to excess calories; J98.4 Other disorders of lung; F79 Unspecified intellectual disabilities; R73.03 Prediabetes; K64.9 Unspecified hemorrhoids; Z82.49 Family history of ischemic heart disease and other diseases of the circulatory system; Z79.899 Other long term (current) drug therapy
CPT/HCPCS: 36415; 36600; 71045; 73600; 80048; 80053; 80061; 80307; 81001; 82805; 83036; 83605; 83690; 83735; 83880; 84443; 84484; 85025; 93005; 93306; 94640; 96374; 97110; 97116; 97163; 97530; G0378